=== PATIENT | male | born 1955 | race Two or more races ===

== ENCOUNTER 2016-04-21 14:58 | Emergency (ER) | payer MEDICARE ==
[~2016-04-21] VITALS: Ht 157.5 cm; Wt 82.1 kg
[~2016-04-21 14:58] MED LIST: AMOX1TAB61 PO; ASPI325T4 PO; ASPI81TA9 PO; ATOR20TA PO; CARV6.25 PO; CLOP75TA PO; CLOP75TA27 PO; ESCI5TAB8 PO; FURO-68 PO; FURO40TA4 PO; HYDR-2678 PO; INSU100V13 SQ; LISI-334 PO; LISI-338 PO; LISI40TA PO; LOVA20TA2 PO; METF500T4 PO; METO25TA4 PO; NITR0.4T SL; POTA10TA31 PO; SERT50TA8 PO; SIMV40TA3 PO; SPIR25TA PO; ZOLP5TAB PO
--- NOTE | 2016-04-21 16:03 | EKG ---
[facility] [address] [place] [address] Test Date: 2016-04-21 Test Time: 15:15:43 Pat Name: FUNMILAYO LOVELACE Department: Room: Gender: M [employer] Operator: : 1955 Requested By: MONA ARCE Order Number: [id number] Reading MD: Measurements Intervals [place] Rate: 82 P: -60 [place]: 142 QRS: -34 QRSD: 116 T: 114 QT: 388 QTc: 456 Interpretive Statements SINUS RHYTHM COMPLEX(ES) WITH ABERRANT INTRAVENTRICULAR CONDUCTION ABNORMAL LEFT AXIS DEVIATION LEFT ANTERIOR FASCICULAR BLOCK LVH WITH REPOLARIZATION ABNORMALITY RI6.01 Unconfirmed report No previous ECG available for comparison
--- NOTE | 2016-04-21 17:29 | PHYS DOC ---
Past Medical History Past Medical History: CAD, CHF, CVA, Diabetes-Type II, High Cholesterol, Hypertension, [place], Seizure Additional Past Medical Histor: TBI Past Surgical History: Coronary Bypass Surgery Alcohol Use: None Drug Use: None Adult General Chief Complaint Chief Complaint: HYPERTENSION HPI HPI 60 year-old male who states he's had difficulty controlling his blood pressure but denies any symptoms. He denies any chest pain or shortness of breath. He denies any dizziness or lightheadedness. He denies any headache. He is fully alert and oriented and answers all my questions. He states he has been compliant with his medications. He does take lisinopril, hydrochlorothiazide, and diuretics for blood pressure. Review of Systems Review of Systems Constitutional: Denies fever or chills [] Eyes: Denies change in visual acuity, redness, or eye pain [] HENT: Denies nasal congestion or sore throat [] Respiratory: Denies cough or shortness of breath [] Cardiovascular: No additional information not addressed in HPI [] GI: Denies abdominal pain, nausea, vomiting, bloody stools or diarrhea [] : Denies dysuria or hematuria [] Musculoskeletal: Denies back pain or joint pain [] Integument: Denies rash or skin lesions [] Neurologic: Denies headache, focal weakness or sensory changes [] Endocrine: Denies polyuria or polydipsia [] Allergies Allergies Allergies Coded Allergies Type Severity Reaction Last Updated Verified No Known Drug Allergies 04/06/13 No Physical Exam Physical Exam Constitutional: Well developed, well nourished, no acute distress, non-toxic appearance. [] HENT: Normocephalic, atraumatic, bilateral external ears normal, oropharynx moist, no oral exudates, nose normal. [] Eyes: PERRLA, EOMI, conjunctiva normal, no discharge. [] Neck: Normal range of motion, no tenderness, supple, no stridor. [] Cardiovascular:Heart rate regular rhythm, no murmur [] Lungs & Thorax: Bilateral breath sounds clear to auscultation [] Abdomen: Bowel sounds normal, soft, no tenderness, no masses, no pulsatile masses. [] Skin: Warm, dry, no erythema, no rash. [] Back: No tenderness, no CVA tenderness. [] Extremities: No tenderness, no cyanosis, no clubbing, ROM intact, no edema. [] Neurologic: Alert and oriented X 3, normal motor function, normal sensory function, no focal deficits noted. [] Psychologic: Affect normal, judgement normal, mood normal. [] Current Patient Data Vital Signs Vital Signs Date Time Temp Pulse Resp B/P Pulse Ox O2 Delivery O2 Flow Rate FiO2 04/21/16 17:40 83 22 204/101 95 Room Air 04/21/16 15:15 98.3 98.3 EKG EKG [] Radiology/Procedures Radiology/Procedures [] Course & Med Decision Making Course & Med Decision Making Pertinent Labs and Imaging studies reviewed. (See chart for details) Patient was observed in the department for several hours but ultimately was discharged home without a significant need for a workup. He is not having any symptoms at this time and his blood pressure is elevated and I counseled him that he will have to follow closely with his primary care doctor and have it rechecked and have his blood pressures trended before making any significant medication changes. In light of fact that he is having no symptoms, I do not see an indication to perform any workup at this time. He is very agreeable with this plan and was discharged without incident. Dragon Disclaimer Dragon Disclaimer This electronic medical record was generated, in whole or in part, using a voice recognition dictation system. Departure Departure Impression: Primary Impression: Uncontrolled hypertension Disposition: 01 HOME, SELF-CARE Admitting Physician: Other Condition: STABLE Referrals: VENKAT GRIJALVA MD (PCP) Patient Instructions: Hypertension, [id number] Additional Instructions: Please follow up with your primary doctor in the next 2 days for your recent elevated blood pressure. Return to the ER if you develop any worsening of your symptoms. MONA ARCE DO Apr 21, 2016 17:29
[2016-04-21 17:40] VITALS: BP 204/101
== END 2016-04-21 17:40 | disposition home or self-care (01) ==
LOC: ER 14:58
DX: I11.0 Hypertensive heart disease with heart failure (principal); I50.9 Heart failure, unspecified; I25.10 Atherosclerotic heart disease of native coronary artery without angina pectoris; E11.9 Type 2 diabetes mellitus without complications; E78.00 Pure hypercholesterolemia, unspecified; I25.2 Old myocardial infarction; Z95.1 Presence of aortocoronary bypass graft; Z87.820 Personal history of traumatic brain injury; Z86.73 Personal history of transient ischemic attack (TIA), and cerebral infarction without residual deficits
CPT/HCPCS: 93005; 99283-25

== ENCOUNTER 2018-05-15 12:29 | Emergency (ER) | payer MEDICARE ==
[~2018-05-15] VITALS: Ht 160 cm; Wt 99.8 kg
[~2018-05-15 12:29] MED LIST changes: +ASPI-612 PO; -ASPI325T4 PO; +ASPI325T8 PO; -ASPI81TA9 PO; +CARV12.511 PO; +CHOL100013 PO; -CLOP75TA27 PO; +CLOP75TA57 PO; +DONE10TA61 PO; +DONE5TAB56 PO; -ESCI5TAB8 PO; +FERR325T14 PO; +LEXAPRO5 MG PO; +LISI-130 PO; -LISI40TA PO; +METF500T16 PO; -METF500T4 PO; +PANT40TA5 PO
--- NOTE | 2018-05-15 12:51 | PHYS DOC ---
Past Medical History Past Medical History: CAD, CHF, CVA, Diabetes-Type II, High Cholesterol, Hypertension, [place], Seizure Additional Past Medical Histor: TBI (YONATHAN LANGLEY APRN) Past Surgical History: Coronary Bypass Surgery (YONATHAN LANGLEY APRN) Alcohol Use: None Drug Use: None (YONATHAN LANGLEY APRN) Adult General Chief Complaint Chief Complaint: DIZZY/LIGHT HEADED HPI HPI Patient is a 62 year old male with history of diabetes type 2, hypertension, COPD, CHF, CAD, [place], open heart surgery unknown date, who presents to the ED today complaining of blurred vision bilaterally and dizziness that began at 5 PM after having his regular cup of coffee. Denies any dizziness or blurred vision right now. Denies any chest pain or shortness of breath. Denies any fever coughing or congestion. PCP Dr. Michael Rogers (YONATHAN LANGLEY APRN) Review of Systems Review of Systems Constitutional: Denies fever or chills [] Eyes: Denies change in visual acuity, redness, or eye pain [] HENT: Denies nasal congestion or sore throat [] Respiratory: Denies cough or shortness of breath [] Cardiovascular: No additional information not addressed in HPI [] GI: Denies abdominal pain, nausea, vomiting, bloody stools or diarrhea [] : Denies dysuria or hematuria [] Musculoskeletal: Denies back pain or joint pain [] Integument: Denies rash or skin lesions [] Neurologic: Reports dizziness and blurred vision. Denies headache, focal weakness or sensory changes [] Endocrine: History of diabetes All other systems were reviewed and found to be within normal limits, except as documented in this note. (YONATHAN LANGLEY APRN) Allergies Allergies Allergies Coded Allergies Type Severity Reaction Last Updated Verified No Known Drug Allergies 09/07/16 No (VAISHNAVI NINA MD) Physical Exam Physical Exam Constitutional: Well developed, well nourished, no acute distress, non-toxic appearance. [] HENT: Normocephalic, atraumatic, bilateral external ears normal, oropharynx moist, no oral exudates, nose normal. [] Eyes: PERRLA, EOMI, conjunctiva normal, no discharge. [] Neck: Normal range of motion, no tenderness, supple, no stridor. [] Cardiovascular: Midline incision on the chest consistent with open heart surgery. Heart rate regular rhythm Lungs & Thorax: Bilateral breath sounds clear to auscultation [] Abdomen: Bowel sounds normal, soft, no tenderness, no masses, no pulsatile masses. [] Skin: Warm, dry, no erythema, no rash. [] Back: No tenderness, no CVA tenderness. [] Extremities: No tenderness, no cyanosis, no clubbing, ROM intact, no edema. [] Neurologic: Alert and oriented X 3, normal motor function, normal sensory function, no focal deficits noted. Cranial nerves II-XII intact Psychologic: Affect normal, judgement normal, mood normal. [] (YONATHAN LANGLEY APRN) Current Patient Data Vital Signs Vital Signs Date Time Temp Pulse Resp B/P (MAP) Pulse Ox O2 Delivery O2 Flow Rate FiO2 05/15/18 14:00 80 19 97 05/15/18 13:08 98.1 182/101 (128) Room Air 98.1 (VAISHNAVI NINA MD) Lab Values Laboratory Tests Test 05/15/18 12:35 05/15/18 12:42 05/15/18 13:05 Urine Opiates Screen Neg (NEG) Urine Methadone Screen Neg (NEG) Urine Barbiturates Neg (NEG) Urine Phencyclidine Screen Neg (NEG) Urine Amphetamine/Methamphetamine Neg (NEG) Urine Benzodiazepines Screen Neg (NEG) Urine Cocaine Screen Neg (NEG) Urine Cannabinoids Screen Neg (NEG) Urine Ethyl Alcohol Neg (NEG) Glucose (Fingerstick) 154 mg/dL (70-99) H White Blood Count 7.7 x10^3/uL (4.0-11.0) Red Blood Count 4.76 x10^6/uL (4.30-5.70) Hemoglobin 12.9 g/dL (13.0-17.5) L Hematocrit 39.0 % (39.0-53.0) Mean Corpuscular Volume 82 fL (79-100) Mean Corpuscular Hemoglobin 27 pg (25-35) Mean Corpuscular Hemoglobin Concent 33 g/dL (31-37) Red Cell Distribution Width 19.8 % (11.5-14.5) H Platelet Count 253 x10^3/uL (140-400) Neutrophils (%) (Auto) 75 % (31-73) H Lymphocytes (%) (Auto) 17 % (24-48) L Monocytes (%) (Auto) 5 % (0-9) Eosinophils (%) (Auto) 2 % (0-3) Basophils (%) (Auto) 0 % (0-3) Neutrophils # (Auto) 5.8 x10^3uL (1.8-7.7) Lymphocytes # (Auto) 1.3 x10^3/uL (1.0-4.8) Monocytes # (Auto) 0.4 x10^3/uL (0.0-1.1) Eosinophils # (Auto) 0.2 x10^3/uL (0.0-0.7) Basophils # (Auto) 0.0 x10^3/uL (0.0-0.2) Prothrombin Time 12.9 SEC (11.7-14.0) Prothrombin Time INR 1.0 (0.8-1.1) PTT 26 SEC (24-38) Sodium Level 140 mmol/L (136-145) Potassium Level 4.1 mmol/L (3.5-5.1) Chloride Level 100 mmol/L (98-107) Carbon Dioxide Level 30 mmol/L (21-32) Anion Gap 10 (6-14) Blood Urea Nitrogen 14 mg/dL (8-26) Creatinine 1.0 mg/dL (0.7-1.3) Estimated GFR (Cockcroft-Gault) 75.7 BUN/Creatinine Ratio 14 (6-20) Glucose Level 160 mg/dL (70-99) H Calcium Level 9.1 mg/dL (8.5-10.1) Magnesium Level 1.7 mg/dL (1.8-2.4) L Total Bilirubin 0.5 mg/dL (0.2-1.0) Aspartate Amino Transferase (AST) 17 U/L (15-37) Alanine Aminotransferase (ALT) 20 U/L (16-63) Alkaline Phosphatase 66 U/L (46-116) Creatine Kinase 93 U/L (39-308) Creatine Kinase MB (Mass) 1.1 ng/mL (0.0-3.6) Creatine Kinase MB Relative Index 1.2 % (0-4) Troponin I Quantitative 0.018 ng/mL (0.000-0.055) NK-Dlu-S-Type Natriuretic Peptide 1017 pg/mL (0-124) H Total Protein 8.0 g/dL (6.4-8.2) Albumin 3.6 g/dL (3.4-5.0) Albumin/Globulin Ratio 0.8 (1.0-1.7) L Lipase 104 U/L (73-393) Thyroid Stimulating Hormone (TSH) 0.117 uIU/mL (0.358-3.74) L Laboratory Tests 05/15/18 13:05 Laboratory Tests 05/15/18 13:05 (VAISHNAVI NINA MD) EKG EKG 12:[address] Nina sinus rhythm HR 76 no STEMI[] (SHWETAEMILYONATHAN Oseguera APRN) Radiology/Procedures Radiology/Procedures []PROCEDURE: PORTABLE CHEST 1V Portable chest, 05/15/2018: HISTORY: Dizziness Comparison is made to a study from 03/05/2018. There has been a previous median sternotomy. The heart is mildly enlarged. The pulmonary vascularity is normal. A streaky opacity projected over the right lower chest most likely represents an artifact. Pleural thickening inferiorly on both sides is due to subpleural fat accumulations. No acute infiltrate is seen. There is no evidence of pleural fluid. IMPRESSION: 1. Mild cardiomegaly. 2. No acute cardiopulmonary abnormality is detected. Electronically signed by: Beatrice Velazquez MD (05/15/2018 1:17 PM) [facility] DICTATED and SIGNED BY: BEATRICE VELAZQUEZ MD DATE: 05/15/18 1317 PROCEDURE: CT HEAD WO CONTRAST CT HEAD WO CONTRAST History: DIZZINESS, HX OF TRAUMATIC BRAIN INJURY/SURGERY Comparison: 09/05/2016 Technique: Noncontrast CT imaging was performed of the head. Exposure: One or more of the following individualized dose reduction techniques were utilized for this examination: 1. Automated exposure control 2. Adjustment of the mA and/or kV according to patient size 3. Use of iterative reconstruction technique. Findings: There again has been right frontal parietal temporal craniotomy. There is again large area of encephalomalacia of the right frontal and temporal lobes as well as basal ganglia, lesser degree of involvement of the right parietal lobe. There is cortical involvement. There is no new intra-axial mass effect or midline shift or acute intracranial hemorrhage. Ventricular size is similar. There is again small focus of encephalomalacia with cortical involvement left occipital lobe. There is again old lacunar infarct centered in the left basal ganglia. There is atherosclerotic calcification of the intradural vertebral arteries and basilar artery as well as carotid siphons. There are again clips in the region of the right middle cerebral artery and paraclinoid region. There are probable foci of low density of the flora greater on the left as seen previously which may be due to sequela of old lacunar infarcts. There is complete opacification of the visualized right maxillary sinus with adjacent thickened purcell as seen previously. Impression: 1. Intracranial findings are unchanged compared with the August 2016 exam. There is again large area of encephalomalacia of the right cerebral hemisphere, also small focus of encephalomalacia with cortical involvement of the left occipital lobe. Electronically signed by: Neptali Cruz MD (05/15/2018 12:55 PM) [id number] DICTATED and SIGNED BY: NEPTALI CRUZ MD DATE: 05/15/18 2549 (YONATHAN LANGLEY APRN) Course & Med Decision Making Course & Med Decision Making Pertinent Labs and Imaging studies reviewed. (See chart for details) This is a 62-year-old male patient presenting to the ED today complaining of dizziness and blurred vision bilaterally that began today after having a cup of coffee at 5 AM. Stroke scale is 0. CT of the head is negative, chest x-ray is negative, labs would not acute findings. Vitals on arrival to the ED temperature 98.1 heart rate 76 O2 sats 98% on room air blood pressure 182/101 respiration 21. I went the patient results he states the reason he developed the dizziness and blurred vision loss because he forgot to take his medicines this morning. He states he took the medicines later on during the day. He was sitting on the edge of the bed. He states wants to go home, he states the dizziness is gone. His blood pressure is came down to the 170s over 90s. He has good follow-up, discharge him home to follow up with his own PCP, neurologist and red cap. (YONATHAN LANGLEY APRN) Course & Med Decision Making Staff Physician Addendum: I was working in the ER during the course of this patient's visit. I was available for consultation as needed, but I was not directly involved in the care of this patient. (VAISHNAVI NINA MD) Dragon Disclaimer Dragon Disclaimer This electronic medical record was generated, in whole or in part, using a voice recognition dictation system. (YONATHAN LANGLEY APRN) Departure Departure Impression: Primary Impression: Dizziness Additional Impressions: Accelerated hypertension Blurred vision Disposition: HOME, SELF-CARE Condition: STABLE Referrals: VENKAT GRIJALVA MD (PCP) follow up next week KRISTINE NOGUEIRA MD follow up in 1 week NITISH ZAMBRANO MD follow up in 1 week Patient Instructions: Dizziness, [id number] Additional Instructions: You were evaluated in the emergency room for dizziness or blurred vision. Your workup was negative for any acute findings, ensure you are taking your medications on time as prescribed by your doctor. Please continue to follow-up with Dr. Grijalva, your neurologist and red cap if you have one. If you don't a red cap and neurologist we provided you names on your discharge paperwork. Come back to the ED at any point symptoms worsen. NIHSS Stroke Scale NIH Stroke Scale: NIH Stroke Scale Response (Comments) Value Level of Consciousness: 0 Alert/Responsive 0 LOC Questions: 0 Answers both correctly 0 LOC Commands: 0 Performs both tasks 0 Best Gaze: 0 Normal 0 Visual: 0 No visual loss 0 Facial Palsy: 0 Normal, symmetrical 0 Motor - Left Arm 0 No drift 0 Motor - Right Arm 0 No drift 0 Motor - Left Leg 0 No drift 0 Motor: Right Leg 0 No drift 0 Limb Ataxia: 0 Absent 0 Sensory: 0 No loss 0 Best Language: 0 Normal 0 Dysathria: 0 Normal 0 Extinction and Inattention: 0 Normal 0 Total 0 Problem Qualifiers YONATHAN LANGLEY APRN May 15, 2018 12:51 VAISHNAVI NINA MD May 17, 2018 10:40
--- NOTE | 2018-05-15 12:58 | RAD ---
CT HEAD WO CONTRAST History: DIZZINESS, HX OF TRAUMATIC BRAIN INJURY/SURGERY Comparison: 09/05/2016 Technique: Noncontrast CT imaging was performed of the head. Exposure: One or more of the following individualized dose reduction techniques were utilized for this examination: 1. Automated exposure control 2. Adjustment of the mA and/or kV according to patient size 3. Use of iterative reconstruction technique. Findings: There again has been right frontal parietal temporal craniotomy. There is again large area of encephalomalacia of the right frontal and temporal lobes as well as basal ganglia, lesser degree of involvement of the right parietal lobe. There is cortical involvement. There is no new intra-axial mass effect or midline shift or acute intracranial hemorrhage. Ventricular size is similar. There is again small focus of encephalomalacia with cortical involvement left occipital lobe. There is again old lacunar infarct centered in the left basal ganglia. There is atherosclerotic calcification of the intradural vertebral arteries and basilar artery as well as carotid siphons. There are again clips in the region of the right middle cerebral artery and paraclinoid region. There are probable foci of low density of the flora greater on the left as seen previously which may be due to sequela of old lacunar infarcts. There is complete opacification of the visualized right maxillary sinus with adjacent thickened purcell as seen previously. Impression: 1. Intracranial findings are unchanged compared with the August 2016 exam. There is again large area of encephalomalacia of the right cerebral hemisphere, also small focus of encephalomalacia with cortical involvement of the left occipital lobe. Electronically signed by: Rony Carl MD (05/15/2018 12:55 PM) [email or web address]
[2018-05-15 13:04] LABS: BARBITURATES NEG (NEG); BENZODIAZEPINES NEG (NEG); CANNABINOIDS NEG (NEG); COCAINE NEG (NEG); METHADONE NEG (NEG); OPIATES NEG (NEG); PHENCYCLIDINE NEG (NEG)
[2018-05-15 13:05] LABS: AMPHETAMINE/METHAMPHETAMINE NEG (NEG)
--- NOTE | 2018-05-15 13:07 | EKG ---
[facility] [address] [place] [address] Test Date: 2018-05-15 Test Time: 12:52:47 Pat Name: FUNMILAYO LOVELACE Department: Room: Gender: M [employer]: : 1955 Requested By: YONATHAN LANGLEY Order Number: [id number] Reading MD: Robles Joshi MD Measurements Intervals [place] Rate: 76 P: -90 [place]: 144 QRS: -48 QRSD: 150 T: -69 QT: 384 QTc: 436 Interpretive Statements SINUS RHYTHM RBBB RVH NON-SPECIFIC ST/T CHANGES Electronically Signed On 05-16-2018 9:46:06 CDT by Robles Joshi MD
[2018-05-15 13:14] LABS: BASO % 0 % (0-3); EOS # 0.2 x10^3/uL (0.0-0.7); EOS % 2 % (0-3); HEMOGLOBIN 12.9 g/dL (13.0-17.5); LYMPH # 1.3 x10^3/uL (1.0-4.8); LYMPH % 17 % (24-48); MEAN CORPUSCULAR HEMOGLOBIN 27 pg (25-35); MEAN CORPUSCULAR HGB CONC 33 g/dL (31-37); MEAN CORPUSCULAR VOLUME 82 fL (79-100); MONO # 0.4 x10^3/uL (0.0-1.1); MONO % 5 % (0-9); NEUT # 5.8 x10^3uL (1.8-7.7); NEUT % 75 % (31-73); PLATELET COUNT 253 x10^3/uL (140-400); RED BLOOD COUNT 4.76 x10^6/uL (4.30-5.70); RED CELL DISTRIBUTION WIDTH 19.8 % (11.5-14.5); WHITE BLOOD COUNT 7.7 x10^3/uL (4.0-11.0)
--- NOTE | 2018-05-15 13:20 | RAD ---
Portable chest, 05/15/2018: HISTORY: Dizziness Comparison is made to a study from 03/05/2018. There has been a previous median sternotomy. The heart is mildly enlarged. The pulmonary vascularity is normal. A streaky opacity projected over the right lower chest most likely represents an artifact. Pleural thickening inferiorly on both sides is due to subpleural fat accumulations. No acute infiltrate is seen. There is no evidence of pleural fluid. IMPRESSION: 1. Mild cardiomegaly. 2. No acute cardiopulmonary abnormality is detected. Electronically signed by: Sunny Velazquez MD (05/15/2018 1:17 PM) [facility] [place]
[2018-05-15 13:22] LABS: CALCIUM 9.1 mg/dL (8.5-10.1); GFR 75.7; POTASSIUM 4.1 mmol/L (3.5-5.1)
[2018-05-15 13:24] LABS: PROTHROMBIN TIME PATIENT 12.9 SEC (11.7-14.0)
[2018-05-15 13:28] LABS: ALBUMIN 3.6 g/dL (3.4-5.0); ALBUMIN/GLOBULIN RATIO 0.8 (1.0-1.7); MAGNESIUM 1.7 mg/dL (1.8-2.4); TOTAL BILIRUBIN 0.5 mg/dL (0.2-1.0)
[2018-05-15 14:00] VITALS: BP 148/87
== END 2018-05-15 14:38 | disposition home or self-care (01) ==
LOC: ER 12:29
DX: R42 Dizziness and giddiness (principal); H53.8 Other visual disturbances; I11.0 Hypertensive heart disease with heart failure; I50.9 Heart failure, unspecified; E78.00 Pure hypercholesterolemia, unspecified; I25.2 Old myocardial infarction; I25.10 Atherosclerotic heart disease of native coronary artery without angina pectoris; Z86.73 Personal history of transient ischemic attack (TIA), and cerebral infarction without residual deficits; Z95.1 Presence of aortocoronary bypass graft
CPT/HCPCS: 36415; 70450; 71045; 80053; 80307; 82553; 82962; 83690; 83735; 83880; 84443; 84484; 85025; 85610; 85730; 93005; 99285-25

== ENCOUNTER 2019-04-15 04:03 | Emergency (ER) | payer MEDICARE ==
[~2019-04-15] VITALS: Ht 188 cm; Wt 109.1 kg
[~2019-04-15 04:03] MED LIST changes: -NITR0.4T SL; +NITR0.4T24 SL; -PANT40TA5 PO; +PANT40TA77 PO; +SIMV40TA18 PO; -SIMV40TA3 PO
[2019-04-15 04:56] LABS: BASO # 0.1 x10^3/uL (0.0-0.2); BASO % 1 % (0-3); EOS # 0.2 x10^3/uL (0.0-0.7); EOS % 3 % (0-3); HEMATOCRIT 39.2 % (39.0-53.0); HEMOGLOBIN 13.4 g/dL (13.0-17.5); LYMPH # 1.6 x10^3/uL (1.0-4.8); LYMPH % 18 % (24-48); MEAN CORPUSCULAR HEMOGLOBIN 29 pg (25-35); MEAN CORPUSCULAR HGB CONC 34 g/dL (31-37); MEAN CORPUSCULAR VOLUME 84 fL (79-100); MONO # 0.6 x10^3/uL (0.0-1.1); MONO % 7 % (0-9); NEUT # 6.4 x10^3/uL (1.8-7.7); NEUT % 72 % (31-73); PLATELET COUNT 241 x10^3/uL (140-400); RED BLOOD COUNT 4.67 x10^6/uL (4.30-5.70); RED CELL DISTRIBUTION WIDTH 14.5 % (11.5-14.5); WHITE BLOOD COUNT 8.9 x10^3/uL (4.0-11.0)
[2019-04-15 05:14] LABS: CALCIUM 8.6 mg/dL (8.5-10.1); CREATININE 1.2 mg/dL (0.7-1.3); GFR 61.1; POTASSIUM 3.5 mmol/L (3.5-5.1)
--- NOTE | 2019-04-15 05:19 | EKG ---
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
--- NOTE | 2019-04-15 05:19 | PHYS DOC ---
Past Medical History Past Medical History: CAD, CHF, CVA, Diabetes-Type II, High Cholesterol, Hypertension, [place], Seizure Additional Past Medical Histor: TBI Past Surgical History: Coronary Bypass Surgery Smoking Status: Never Smoker Alcohol Use: None Drug Use: None Adult General Chief Complaint Chief Complaint: DIZZY/LIGHT HEADED HPI HPI Patient is a 63 year old male who presents with complaint of lightheadedness and seeing floaters today. Patient denies any flickering lights. Patient denies any headache or significant visual changes. He denies any nausea or vomiting. He also denies any chest pain or shortness of breath.[] Review of Systems Review of Systems Constitutional: Denies fever or chills [] Eyes: Denies change in visual acuity, redness, or eye pain. Complains of floaters. [] Respiratory: Denies cough or shortness of breath [] Cardiovascular: No additional information not addressed in HPI [] Integument: Denies rash or skin lesions [] Neurologic: Denies headache, focal weakness or sensory changes [] All other systems were reviewed and found to be within normal limits, except as documented in this note. Allergies Allergies Allergies Coded Allergies Type Severity Reaction Last Updated Verified No Known Drug Allergies 09/07/16 No Physical Exam Physical Exam Constitutional: Well developed, well nourished, no acute distress, non-toxic appearance. [] HENT: Normocephalic, atraumatic, bilateral external ears normal, oropharynx moist, no oral exudates, nose normal. [] Eyes: PERRLA, EOMI, conjunctiva normal, no discharge. [] Neck: Normal range of motion, no tenderness, supple, no stridor. [] Cardiovascular: Regular rate and rhythm[] Lungs & Thorax: Bilateral breath sounds clear to auscultation [] Abdomen: Bowel sounds normal, soft, no tenderness. [] Skin: Warm, dry, no erythema, no rash. [] Extremities: No tenderness, no cyanosis, no clubbing, ROM intact. [] Neurologic: Alert and oriented X 3, no focal deficits noted. [] Current Patient Data Vital Signs Vital Signs Date Time Temp Pulse Resp B/P (MAP) Pulse Ox O2 Delivery O2 Flow Rate FiO2 04/15/19 04:30 98.6 101 18 172/100 (124) 96 Room Air 98.6 Lab Values Laboratory Tests Test 04/15/19 04:33 04/15/19 04:45 Glucose (Fingerstick) 190 mg/dL (70-99) H White Blood Count 8.9 x10^3/uL (4.0-11.0) Red Blood Count 4.67 x10^6/uL (4.30-5.70) Hemoglobin 13.4 g/dL (13.0-17.5) Hematocrit 39.2 % (39.0-53.0) Mean Corpuscular Volume 84 fL (79-100) Mean Corpuscular Hemoglobin 29 pg (25-35) Mean Corpuscular Hemoglobin Concent 34 g/dL (31-37) Red Cell Distribution Width 14.5 % (11.5-14.5) Platelet Count 241 x10^3/uL (140-400) Neutrophils (%) (Auto) 72 % (31-73) Lymphocytes (%) (Auto) 18 % (24-48) L Monocytes (%) (Auto) 7 % (0-9) Eosinophils (%) (Auto) 3 % (0-3) Basophils (%) (Auto) 1 % (0-3) Neutrophils # (Auto) 6.4 x10^3/uL (1.8-7.7) Lymphocytes # (Auto) 1.6 x10^3/uL (1.0-4.8) Monocytes # (Auto) 0.6 x10^3/uL (0.0-1.1) Eosinophils # (Auto) 0.2 x10^3/uL (0.0-0.7) Basophils # (Auto) 0.1 x10^3/uL (0.0-0.2) Sodium Level 141 mmol/L (136-145) Potassium Level 3.5 mmol/L (3.5-5.1) Chloride Level 103 mmol/L (98-107) Carbon Dioxide Level 27 mmol/L (21-32) Anion Gap 11 (6-14) Blood Urea Nitrogen 13 mg/dL (8-26) Creatinine 1.2 mg/dL (0.7-1.3) Estimated GFR (Cockcroft-Gault) 61.1 BUN/Creatinine Ratio 11 (6-20) Glucose Level 191 mg/dL (70-99) H Calcium Level 8.6 mg/dL (8.5-10.1) Magnesium Level 1.5 mg/dL (1.8-2.4) L Total Bilirubin 0.8 mg/dL (0.2-1.0) Aspartate Amino Transferase (AST) 14 U/L (15-37) L Alanine Aminotransferase (ALT) 13 U/L (16-63) L Alkaline Phosphatase 67 U/L (46-116) Total Protein 7.0 g/dL (6.4-8.2) Albumin 3.1 g/dL (3.4-5.0) L Albumin/Globulin Ratio 0.8 (1.0-1.7) L Laboratory Tests 04/15/19 04:45 Laboratory Tests 04/15/19 04:45 EKG EKG [] Interpretation Time: EKG demonstrates sinus tachycardia with rate of 101. Radiology/Procedures Radiology/Procedures [] Course & Med Decision Making Course & Med Decision Making Pertinent Labs and Imaging studies reviewed. (See chart for details) [] Dragon Disclaimer Dragon Disclaimer This electronic medical record was generated, in whole or in part, using a voice recognition dictation system. Departure Departure Impression: Primary Impression: Vitreous floaters of both eyes Disposition: 01 HOME, SELF-CARE Condition: STABLE Referrals: VENKAT GRIJALVA MD (PCP) JC NOBLE MD Call to schedule appointment with ophthalmology for the next 1-2 days. Patient Instructions: Eye - Floaters LANE PHILLIPS Jr. DO Apr 15, 2019 05:19
[2019-04-15 05:20] LABS: ALBUMIN 3.1 g/dL (3.4-5.0); ALBUMIN/GLOBULIN RATIO 0.8 (1.0-1.7); MAGNESIUM 1.5 mg/dL (1.8-2.4); TOTAL BILIRUBIN 0.8 mg/dL (0.2-1.0)
[2019-04-15] MEDS: MAGNESIUM OXIDE 400 MG TABLET PO ONE (06:22)
[2019-04-15 06:23] VITALS: BP 138/79
== END 2019-04-15 06:35 | disposition home or self-care (01) ==
LOC: ER 04:03
DX: H43.393 Other vitreous opacities, bilateral (principal); R42 Dizziness and giddiness; E78.00 Pure hypercholesterolemia, unspecified; E11.9 Type 2 diabetes mellitus without complications; I11.0 Hypertensive heart disease with heart failure; I50.9 Heart failure, unspecified; I25.10 Atherosclerotic heart disease of native coronary artery without angina pectoris; I25.2 Old myocardial infarction; Z86.73 Personal history of transient ischemic attack (TIA), and cerebral infarction without residual deficits; Z95.1 Presence of aortocoronary bypass graft
CPT/HCPCS: 36415; 80053; 82962; 83735; 85025; 93005; 99284-25

== ENCOUNTER 2019-07-12 15:58 | Emergency (ER) | payer MEDICARE ==
[~2019-07-12] VITALS: Ht 160 cm; Wt 100.0 kg
[2019-07-12] MEDS ORDERED: HYDROmorphone 2 MG/ML VIAL IV ONE (16:45)
[2019-07-12] MEDS ORDERED: ONDANSETRON PF 4 MG/2 ML VIAL. IVP ONE (16:45)
[2019-07-12] MEDS ORDERED: IV NORMAL SALINE 1000ML BAG 1,000 ML IV ONE (16:45)
[2019-07-12 16:58] LABS: BASO % 1 % (0-3); EOS # 0.2 x10^3/uL (0.0-0.7); EOS % 2 % (0-3); HEMATOCRIT 42.4 % (39.0-53.0); HEMOGLOBIN 14.2 g/dL (13.0-17.5); LYMPH # 1.2 x10^3/uL (1.0-4.8); LYMPH % 11 % (24-48); MEAN CORPUSCULAR HEMOGLOBIN 28 pg (25-35); MEAN CORPUSCULAR HGB CONC 33 g/dL (31-37); MEAN CORPUSCULAR VOLUME 85 fL (79-100); MONO # 0.8 x10^3/uL (0.0-1.1); MONO % 8 % (0-9); NEUT % 78 % (31-73); PLATELET COUNT 277 x10^3/uL (140-400); RED BLOOD COUNT 5.01 x10^6/uL (4.30-5.70); RED CELL DISTRIBUTION WIDTH 15.1 % (11.5-14.5); WHITE BLOOD COUNT 10.2 x10^3/uL (4.0-11.0)
[2019-07-12 17:06] LABS: CALCIUM 8.4 mg/dL (8.5-10.1); CREATININE 1.4 mg/dL (0.7-1.3); GFR 51.2
[2019-07-12 17:12] LABS: ALBUMIN 3.3 g/dL (3.4-5.0); ALBUMIN/GLOBULIN RATIO 0.7 (1.0-1.7); TOTAL BILIRUBIN 0.4 mg/dL (0.2-1.0); TOTAL PROTEIN 7.8 g/dL (6.4-8.2)
--- NOTE | 2019-07-12 17:43 | RAD ---
DUPLEX SONOGRAPHY OF THE TESTICLES AND SCROTUM INDICATIONS: Abscess. FINDINGS: Duplex sonography of the scrotum and both testicles was performed including grayscale evaluation and color flow and waveform spectral analysis. Symmetric color Doppler flow is seen within the testicles and therefore no testicular torsion is seen. The longitudinal AP and transverse dimensions of the right testicle are 4.3 cm and 2.6 and measures and 2.4 cm respectively. The longitudinal AP and transverse dimensions of the left testicle are 4.3 cm and 2.2 cm and 2.4 cm respectively. Both testicles are homogeneous without mass. On the left side, small tunica albuginea cysts are seen around the testicle. Small hydrocele is seen on both sides. Epididymis on both sides are unremarkable without hyperemia. Within the soft tissues of the scrotum on the right side, complex abscess is seen with hyperemia. This measures 2.9 cm x 2.3 cm x 2.2 cm in size. There is associated skin thickening of the scrotum. IMPRESSION: Scrotal abscess on the right side measuring 2.9 cm in size. No testicular torsion or mass is seen. Electronically signed by: Bebeto Vargas MD (07/12/2019 5:40 PM) [id number]
--- NOTE | 2019-07-12 18:24 | PHYS DOC ---
Past Medical History Past Medical History: CAD, CHF, CVA, Diabetes-Type II, High Cholesterol, Hypertension, [place], Seizure Additional Past Medical Histor: TBI Past Surgical History: Coronary Bypass Surgery Smoking Status: Never Smoker Alcohol Use: None Drug Use: None General Adult EDM: Chief Complaint: PENIS PROBLEM HPI: HPI: Patient is a 63 year old male presenting to the ED with a chief complaint of right testicular pain. Patient states that there is drainage from the right testicle. Patient states that the symptoms are not present for the last 2 days. Patient does state that he has a history of diabetes, high blood pressure, coronary artery disease, CVA, CHF. Patient does have a history of CABG. patient denies fever, chills, chest pain, shortness of breath. Review of Systems: Review of Systems: Constitutional: Denies fever or chills. [] Eyes: Denies change in visual acuity. [] HENT: Denies nasal congestion or sore throat. [] Respiratory: Denies cough or shortness of breath. [] Cardiovascular: Denies chest pain or edema. [] GI: Denies abdominal pain, nausea, vomiting, bloody stools or diarrhea. [] : Denies dysuria. [] Musculoskeletal: Denies back pain or joint pain. [] Integument: Denies rash. [] Neurologic: Denies headache, focal weakness or sensory changes. [] Endocrine: Denies polyuria or polydipsia. [] Lymphatic: Denies swollen glands. [] Psychiatric: Denies depression or anxiety. [] Heart Score: Risk Factors: Risk Factors: DM, Current or recent (<one month) smoker, HTN, HLP, family history of CAD, obesity. Risk Scores: Score 0 - 3: 2.5% MACE over next 6 weeks - Discharge Home Score 4 - 6: 20.3% MACE over next 6 weeks - Admit for Clinical Observation Score 7 - 10: 72.7% MACE over next 6 weeks - Early Invasive Strategies Current Medications: Current Medications Medications (Trade) Dose Ordered Sig/Grace Start Time Stop Time Status Last Admin Dose Admin Hydromorphone HCl (Dilaudid) 1 mg 1X ONCE 07/12/19 16:45 07/12/19 16:46 DC 07/12/19 16:59 1 MG Ondansetron HCl (Zofran) 4 mg 1X ONCE 07/12/19 16:45 07/12/19 16:46 DC 07/12/19 16:57 4 MG Sodium Chloride 1,000 ml @ 1,000 mls/hr 1X ONCE 07/12/19 16:45 07/12/19 17:44 DC 07/12/19 16:56 1,000 MLS/HR Vancomycin HCl 1.25 gm/Sodium Chloride 250 ml @ 166.667 mls/hr 1X ONCE 07/12/19 18:30 07/12/19 19:59 UNV Allergies: Allergies: Allergies Coded Allergies Type Severity Reaction Last Updated Verified No Known Drug Allergies 09/07/16 No Physical Exam: PE: Constitutional: Well developed, well nourished, no acute distress, non-toxic appearance. HENT: Normocephalic, atraumatic Eyes: EOMI Neck: Normal range of motion, Supple Cardiovascular:Heart rate regular rhythm Lungs & Thorax: Bilateral breath sounds clear to auscultation [] Abdomen: Bowel sounds normal, soft, no tenderness : There is a indurated area in the right testicle with mild discharge Neurologic: Alert and oriented X 3 Current Patient Data: Labs: Laboratory Tests Test 07/12/19 16:49 White Blood Count 10.2 x10^3/uL (4.0-11.0) Red Blood Count 5.01 x10^6/uL (4.30-5.70) Hemoglobin 14.2 g/dL (13.0-17.5) Hematocrit 42.4 % (39.0-53.0) Mean Corpuscular Volume 85 fL (79-100) Mean Corpuscular Hemoglobin 28 pg (25-35) Mean Corpuscular Hemoglobin Concent 33 g/dL (31-37) Red Cell Distribution Width 15.1 % (11.5-14.5) H Platelet Count 277 x10^3/uL (140-400) Neutrophils (%) (Auto) 78 % (31-73) H Lymphocytes (%) (Auto) 11 % (24-48) L Monocytes (%) (Auto) 8 % (0-9) Eosinophils (%) (Auto) 2 % (0-3) Basophils (%) (Auto) 1 % (0-3) Neutrophils # (Auto) 8.0 x10^3/uL (1.8-7.7) H Lymphocytes # (Auto) 1.2 x10^3/uL (1.0-4.8) Monocytes # (Auto) 0.8 x10^3/uL (0.0-1.1) Eosinophils # (Auto) 0.2 x10^3/uL (0.0-0.7) Basophils # (Auto) 0.0 x10^3/uL (0.0-0.2) Sodium Level 137 mmol/L (136-145) Potassium Level 4.0 mmol/L (3.5-5.1) Chloride Level 101 mmol/L (98-107) Carbon Dioxide Level 29 mmol/L (21-32) Anion Gap 7 (6-14) Blood Urea Nitrogen 18 mg/dL (8-26) Creatinine 1.4 mg/dL (0.7-1.3) H Estimated GFR (Cockcroft-Gault) 51.2 BUN/Creatinine Ratio 13 (6-20) Glucose Level 214 mg/dL (70-99) H Lactic Acid Level 1.6 mmol/L (0.4-2.0) Calcium Level 8.4 mg/dL (8.5-10.1) L Total Bilirubin 0.4 mg/dL (0.2-1.0) Aspartate Amino Transferase (AST) 11 U/L (15-37) L Alanine Aminotransferase (ALT) 10 U/L (16-63) L Alkaline Phosphatase 83 U/L (46-116) Total Protein 7.8 g/dL (6.4-8.2) Albumin 3.3 g/dL (3.4-5.0) L Albumin/Globulin Ratio 0.7 (1.0-1.7) L Laboratory Tests 07/12/19 16:49 Laboratory Tests 07/12/19 16:49 Vital Signs: Vital Signs Date Time Temp Pulse Resp B/P (MAP) Pulse Ox O2 Delivery O2 Flow Rate FiO2 07/12/19 16:59 16 97 Room Air 07/12/19 16:09 98.3 101 154/103 (120) 98.3 EKG: EKG: [] Radiology/Procedures: Radiology/Procedures: [] Impression: IMPRESSION: Scrotal abscess on the right side measuring 2.9 cm in size. No testicular torsion or mass is seen. Course & Med Decision Making: Course & Med Decision Making Pertinent Labs and Imaging studies reviewed. (See chart for details) Ordered labs, UA, IV fluids, IV Dilaudid, IV Zofran, ultrasound of the scrotum. Labs are within normal limits except elevated blood glucose. Ultrasound shows that patient has a scrotal abscess in the right that measures 2.9 cm x 2.3 cm x 2.2 cm. 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 IV vancomycin started in the ER. As [facility] does not have urology coverage patient will be transferred to another facility for further evaluation and treatment. I discussed case with [facility] and also discussed with Dr. Gordon who is the on-call urologist. Dr. Gordon accepts patient for transfer to the ER. I discussed results and plan of care with patient. Thea Disclaimer: Thea Disclaimer: This electronic medical record was generated, in whole or in part, using a voice recognition dictation system. Departure Departure Impression: Primary Impression: Scrotal abscess Disposition: 05 TRANSFER OTHER Condition: GUARDED Referrals: VENKAT GRIJALVA MD (PCP) OZZIE MEANS DO July 12, 2019 18:24
[2019-07-12] MEDS ORDERED: VANCOMYCIN 1.25 GM in IV NORMAL SALINE 250ML 250 ML IV ONE (18:30)
[2019-07-12] MEDS ORDERED: VANCOMYCIN 2 GM in IV NORMAL SALINE 500ML BAG 500 ML IV ONE (19:00)
[2019-07-12 20:35] VITALS: BP 139/96
== END 2019-07-12 20:43 | disposition short-term general hospital (02) ==
LOC: ER 15:58
DX: N49.2 Inflammatory disorders of scrotum (principal); E11.9 Type 2 diabetes mellitus without complications; E78.00 Pure hypercholesterolemia, unspecified; I11.0 Hypertensive heart disease with heart failure; I50.9 Heart failure, unspecified; I25.10 Atherosclerotic heart disease of native coronary artery without angina pectoris; I25.2 Old myocardial infarction; Z87.820 Personal history of traumatic brain injury; Z95.1 Presence of aortocoronary bypass graft
CPT/HCPCS: 36415; 76870; 80053; 83605; 85025; 96365; 96366; 96375; 99285; J1170; J2405; J3370; J7030; J7040

== ENCOUNTER 2020-12-05 11:03 | Inpatient (IN) | payer MEDICARE, OTHER ==
[~2020-12-05] VITALS: Ht 157.5 cm; Wt 83.1 kg
[~2020-12-05 11:03] MED LIST changes: -ASPI-612 PO; +ASPI-886 PO; -LISI-334 PO; -LISI-338 PO; +LISI20TA18 PO; +LISI5TAB15 PO; +SERT-267 PO; -SERT50TA8 PO
--- NOTE | 2020-12-05 11:22 | PHYS DOC ---
Past Medical History Past Medical History: CAD, CHF, CVA, Diabetes-Type II, High Cholesterol, Hypertension, [place], Seizure Additional Past Medical Histor: TBI Past Surgical History: Coronary Bypass Surgery Smoking Status: Never Smoker Alcohol Use: None Drug Use: None General Adult EDM: Chief Complaint: SHORTNESS OF BREATH HPI: HPI: Patient is a 65 year old male with history of DM, HTN, HLD, CAD, CVA who presents with cough, shortness of breath, fever. Has been having symptoms for several days. Has increasing shortness of breath. Cough is productive of yellow sputum. No blood in the sputum. Denies any chest pain. No abdominal pain, nausea, vomiting. Review of Systems: Review of Systems: Constitutional: Reports fever and chills Eyes: Denies change in visual acuity. [] HENT: Denies nasal congestion or sore throat. [] Respiratory: Reports cough and shortness of breath Cardiovascular: Denies chest pain or edema. [] GI: Denies abdominal pain, nausea, vomiting, bloody stools or diarrhea. [] : Denies dysuria. [] Musculoskeletal: Denies back pain or joint pain. [] Integument: Denies rash. [] Neurologic: Denies headache, focal weakness or sensory changes. [] Endocrine: Denies polyuria or polydipsia. [] Lymphatic: Denies swollen glands. [] Psychiatric: Denies depression or anxiety. [] Heart Score: C/O Chest Pain: No Risk Factors: Risk Factors: DM, Current or recent (<one month) smoker, HTN, HLP, family history of CAD, obesity. Risk Scores: Score 0 - 3: 2.5% MACE over next 6 weeks - Discharge Home Score 4 - 6: 20.3% MACE over next 6 weeks - Admit for Clinical Observation Score 7 - 10: 72.7% MACE over next 6 weeks - Early Invasive Strategies Allergies: Allergies: Allergies Coded Allergies Type Severity Reaction Last Updated Verified No Known Drug Allergies 09/07/16 No Physical Exam: PE: Constitutional: Ill-appearing, very warm to the touch. Very generally weak, required 23 persons for transfer from wheelchair to bed. HENT: Normocephalic, atraumatic Eyes: PERRLA, EOMI, conjunctiva normal, no discharge. [] Neck: Normal range of motion, no tenderness, supple, no stridor. [] Cardiovascular:Heart rate regular rhythm, no murmur [] Lungs & Thorax: Increased work of breathing, tachypnea, distant lung sounds bilaterally. Abdomen: Bowel sounds normal, soft, no tenderness, no masses, no pulsatile masses. [] Skin: Warm, dry, no erythema, no rash. [] Back: No tenderness, no CVA tenderness. [] Extremities: 2+ pitting edema to the knee. [] Neurologic: Alert and oriented X 3, normal motor function, normal sensory function, no focal deficits noted. [] Psychologic: Affect normal, judgement normal, mood normal. [] EKG: EKG: Heart rate 129. Appears to be sinus with a nonspecific intraventricular conduction delay. Left axis deviation. No concordant ST changes. [] Radiology/Procedures: Radiology/Procedures: [] Impression: [facility] [address] [place] [address] IMAGING REPORT Signed PATIENT: FUNMILAYO LOVELACE ACCOUNT: [id number] : 1955 LOCATION: ER AGE: 65 SEX: M EXAM STATUS: REG ER ORD. PHYSICIAN: CHATA DELGADO MD REASON: sepsis, cough, fever, sob, PT HAD DIFFICULTY HOLDING BREATH FOR XRAY PROCEDURE: CHEST AP ONLY AP chest. HISTORY: Sepsis, cough, fever, short of breath AP view of the chest was compared with an old study from 2019. Heart is enlarged. There are diffuse bilateral infiltrates most consistent with atypical or Covid 19 pneumonia. There is mild pleural thickening similar to an old study. Patient had a previous sternotomy. IMPRESSION: 1. Bilateral hazy infiltrates. Electronically signed by: Ludwin Arora MD (12/05/2020 12:20 PM) [facility] [place]ATED and SIGNED BY: LUDWIN ARORA MD DATE: 12/05/20 [id number] 0 Course & Med Decision Making: Course & Med Decision Making Pertinent Labs and Imaging studies reviewed. (See chart for details) Patient is 65-year-old man with history of HTN, HLD, DM, CVA, CAD, CHF who presents with fever, cough, shortness of breath. Febrile to 103 F on arrival, tachycardic to 130s. BP stable. SPO2 93% on room air, but does show signs of increased work of breathing. Sepsis bundle ordered with lactic acid, blood culture, will give Zosyn and azithromycin for presumed pulmonary source. Covid and flu tests pending. Given his CHF history, and evidence of pedal edema, will be cautious with fluids and start with 500 cc bolus. 1126 CXR shows bilateral hazy infiltrates. Lactate 2.0. Troponin 0.071, the setting of a creatinine of 1.4. Patient has not had any chest pain, so I doubt a primary ischemic etiology. More likely to be related to sepsis. Will trend troponin, hold on heparin drip at this time. Given 5 mg bolus of IV metoprolol, with only modest improvement of heart rate into the 120s. 1232 Covid is positive. 5 mg IV metoprolol with good response to rate of now 107. P waves are easily distinguishable on telemetry. Patient will be admitted to telemetry/CVC Unit. I have not seen hypoxia, so will hold on dexamethasone for now. Accepted by Dr. Ricardo of the [facility] service. 1310 Thea Disclaimer: Thea Disclaimer: This electronic medical record was generated, in whole or in part, using a voice recognition dictation system. Departure Departure Impression: Primary Impression: Pneumonia due to COVID-19 virus Additional Impressions: Tachycardia CHF (congestive heart failure) Disposition: ADMITTED INPATIENT Admitting Physician: [facility] Condition: GUARDED Referrals: VENKAT GRIJALVA MD (PCP) CHATA DELGADO MD Dec 05, 2020 11:22
[2020-12-05] MEDS ORDERED: PIPERACILLIN/TAZOBACTAM 4.5 GM in IV NORMAL SALINE 100ML 100 ML IV ONE (11:30)
[2020-12-05] MEDS ORDERED: AZITHROMYCIN 250 MG TABLET. PO ONE (11:30)
[2020-12-05] MEDS ORDERED: IV NORMAL SALINE 500ML BAG 500 ML IV ONE (11:30)
[2020-12-05 11:42] LABS: BASO % 0 % (0-3); EOS % 0 % (0-3); HEMOGLOBIN 13.5 g/dL (13.0-17.5); LYMPH # 0.8 x10^3/uL (1.0-4.8); LYMPH % 8 % (24-48); MEAN CORPUSCULAR HEMOGLOBIN 29 pg (25-35); MEAN CORPUSCULAR HGB CONC 35 g/dL (31-37); MEAN CORPUSCULAR VOLUME 83 fL (79-100); MONO # 0.5 x10^3/uL (0.0-1.1); MONO % 5 % (0-9); NEUT # 8.8 x10^3/uL (1.8-7.7); NEUT % 86 % (31-73); PLATELET COUNT 209 x10^3/uL (140-400); RED BLOOD COUNT 4.71 x10^6/uL (4.30-5.70); RED CELL DISTRIBUTION WIDTH 14.2 % (11.5-14.5); WHITE BLOOD COUNT 10.2 x10^3/uL (4.0-11.0)
[2020-12-05 11:52] LABS: CALCIUM 8.3 mg/dL (8.5-10.1); CREATININE 1.4 mg/dL (0.7-1.3); GFR 50.9; POTASSIUM 3.6 mmol/L (3.5-5.1)
[2020-12-05] MEDS ORDERED: METOPROLOL IV PUSH 5 MG/5 ML VIAL. IVP ONE ×2 (12:00→13:00)
[2020-12-05 12:01] LABS: ALBUMIN/GLOBULIN RATIO 0.6 (1.0-1.7); TOTAL BILIRUBIN 1.1 mg/dL (0.2-1.0); TOTAL PROTEIN 7.9 g/dL (6.4-8.2)
--- NOTE | 2020-12-05 12:23 | RAD ---
AP chest. HISTORY: Sepsis, cough, fever, short of breath AP view of the chest was compared with an old study from 2019. Heart is enlarged. There are diffuse b ilateral infiltrates most consistent with atypical or Covid 19 pneumonia. There is mild pleural thick ening similar to an old study. Patient had a previous sternotomy. IMPRESSION: 1. Bilateral hazy infiltrates. Electronically signed by: Ludwin Arora MD (12/05/2020 12:20 PM) [facility]
[2020-12-05 12:27] LABS: BILIRUBIN,URINE MODERATE (NEG); CLARITY,URINE CLEAR; NITRITE,URINE NEGATIVE (NEG); PH,URINE 5.5 (<5.0-8.0); PROTEIN,URINE >=300 mg/dL (NEG-TRACE)
[2020-12-05 12:32] LABS: COLOR,URINE YELLOW
[2020-12-05 12:33] LABS: AMORPHOUS SEDIMENT,UR PRESENT /HPF; BACTERIA,URINE FEW /HPF (0-FEW); HYALINE CASTS, URINE FEW /HPF
[2020-12-05 12:36] LABS: INFLUENZA A PATIENT NEGATIVE (NEGATIVE); INFLUENZA B PATIENT NEGATIVE (NEGATIVE)
[2020-12-05] MEDS ORDERED: guaiFENesin/CODEINE 100mg/10mg 5 ML LIQUID PO PRN (14:00)
[2020-12-05] MEDS ORDERED: ZOLPIDEM 5 MG TABLET. PO PRN (14:00)
[2020-12-05] MEDS ORDERED: ACETAMINOPHEN 325 MG TABLET. PO PRN (14:00)
[2020-12-05] MEDS ORDERED: ELECTROLYTE (NON-ICU) PROTOCOL. MC PRN (14:00)
[2020-12-05] MEDS ORDERED: PIP/TAZO PER PHARMACY MC PRN (14:00)
[2020-12-05] MEDS ORDERED: oxyCODONE/APAP 5/325 1 TAB TABLET PO PRN ×2 (14:00)
[2020-12-05] MEDS ORDERED: ONDANSETRON PF 4 MG/2 ML VIAL. IVP PRN (14:00)
[2020-12-05] MEDS ORDERED: CALCIUM CARBONATE 500 MG TAB.CHEW PO PRN (14:00)
[2020-12-05] MEDS ORDERED: ALBUTEROL SULFATE 8GM INHALER. INH PRN (14:00)
[2020-12-05] MEDS ORDERED: HEPARIN for SUB-Q USE 5,000 UNIT/ML VIAL. SQ SCH (15:00)
[2020-12-05] MEDS: DEXAMETHASONE SOD PHOS 4 MG/ML VIAL IVP SCH (15:40)
--- NOTE | 2020-12-05 15:53 | PDOC1 ---
History and Physical Date of Service: DOS: DATE: 12/05/20 TIME: 15:44 Chief Complaint: Problems: (1) CHF (congestive heart failure) (2) Pneumonia due to COVID-19 virus Chief Complain: Shortness of breath History of Present Illness: HPI: Patient is a 65-year-old male presented to the emergency room today with worsening cough shortness of breath. Patient reports that he started having symptoms last week with trouble breathing. He said that is slowly progressing worse causing him to present today. Reports a productive cough with yellow sputum no blood in sputum. Does not wear oxygen at home. Says he has had chills at home and thinks he has had a fever but never checked his temperature. He denies any Covid contacts. He has received both vaccines I evaluated the patient he was in bed on 3 L nasal cannula. He was still having a pretty difficult time breathing. Patient does have a history of BPH causing him to get up multiple times throughout the night to urinate. We will try Flomax for him He denies any sort of headache, dizziness, vision changes, chest pain, abdominal pain, dysuria. Past Medical/Surgical History: PMH/PSH: CAD, CHF, CVA, Diabetes-Type II, High Cholesterol, Hypertension, NH, Seizure, TBI Allergies: Allergies: Coded Allergies: No Known Drug Allergies (Unverified , 09/07/16) Family History: Family History: Reviewed with patient no known Social History: Social History: Denies alcohol tobacco or drug use Current Medications: Current Medications Current Medications Sodium Chloride 500 ml @ 500 mls/hr 1X ONCE IV Last administered on 12/05/20at 11:30; Start 12/05/20 at 11:30; Stop 12/05/20 at 12:29; Status DC Piperacillin Sod/ Tazobactam Sod 4.5 gm/Sodium Chloride 100 ml @ 200 mls/hr 1X ONCE IV Last administered on 12/05/20at 11:30; Start 12/05/20 at 11:30; Stop 12/05/20 at 11:59; Status DC Azithromycin (Zithromax) 500 mg 1X ONCE PO Last administered on 12/05/20at 11:59; Start 12/05/20 at 11:30; Stop 12/05/20 at 11:31; Status DC Metoprolol Tartrate (Lopressor Vial) 5 mg 1X ONCE IVP Last administered on 12/05/20at 12:00; Start 12/05/20 at 12:00; Stop 12/05/20 at 12:01; Status DC Metoprolol Tartrate (Lopressor Vial) 5 mg 1X ONCE IVP ; Start 12/05/20 at 13: 00; Stop 12/05/20 at 13:01; Status DC Ondansetron HCl (Zofran) 4 mg PRN Q6HRS PRN IVP NAUSEA/VOMITING; Start 12/05/20 at 14:00 Calcium Carbonate/ Glycine (Tums) 500 mg PRN Q3HRS PRN PO UPSET STOMACH; Start 12/05/20 at 14:00 Zolpidem Tartrate (Ambien) 5 mg PRN QHS PRN PO INSOMNIA, MAY REPEAT IN 1HR; Start 12/05/20 at 14:00 Info (Non-Icu Electrolyte Protocol) 1 ea PRN DAILY PRN MC SEE COMMENTS; Start 12/05/20 at 14:00 Oxycodone/ Acetaminophen (Percocet 5/325) 1 tab PRN Q4HRS PRN PO MILD PAIN, 1ST CHOICE; Start 12/05/20 at 14:00 Oxycodone/ Acetaminophen (Percocet 5/325) 2 tab PRN Q4HRS PRN PO MODERATE PAIN, SEVERE PAIN; Start 12/05/20 at 14:00 Acetaminophen (Tylenol) 650 mg PRN Q6HRS PRN PO Headaches, Temp > 101.5F; Start 12/05/20 at 14:00 Senna/Docusate Sodium (Senna Plus) 1 tab BID PO ; Start 12/05/20 at 21:00 Heparin Sodium (Porcine) (Heparin Sodium) 5,000 unit Q8HRS SQ Last administered on 12/05/20at 15:41; Start 12/05/20 at 15:00 Remdesivir 200 mg/ Sodium Chloride 210 ml @ 210 mls/hr 1X ONCE IV ; Start 12/05/20 at 16:00; Stop 12/05/20 at 16:59 Remdesivir 100 mg/ Sodium Chloride 230 ml @ 460 mls/hr Q24H IV ; Start 12/06/20 at 16:00; Stop 12/09/20 at 16:29 Albuterol Sulfate (Ventolin Hfa) 2 puff PRN Q4HRS PRN INH SHORTNESS OF BREATH; Start 12/05/20 at 14:00 Aspirin (Ecotrin) 81 mg DAILYWBKFT PO ; Start 12/06/20 at 08:00 Atorvastatin Calcium (Lipitor) 20 mg HS PO ; Start 12/05/20 at 21:00 Carvedilol (Coreg) 12.5 mg BIDWMEALS PO ; Start 12/05/20 at 17:00 Clopidogrel Bisulfate (Plavix) 75 mg DAILYWBKFT PO ; Start 12/06/20 at 08:00 Donepezil HCl (Aricept) 10 mg HS PO ; Start 12/05/20 at 21:00 Furosemide (Lasix) 40 mg DAILY PO ; Start 12/06/20 at 09:00 Lisinopril (Prinivil) 20 mg DAILY PO ; Start 12/06/20 at 09:00 Pantoprazole Sodium (Protonix) 40 mg DAILYAC PO ; Start 12/06/20 at 07:30 Spironolactone (Aldactone) 25 mg DAILY PO ; Start 12/06/20 at 09:00 Dexamethasone Sodium Phosphate (Decadron) 6 mg DAILY IVP Last administered on 12/05/20at 15:40; Start 12/05/20 at 14:00 Piperacillin Sod/ Tazobactam Sod (Zosyn Per Pharmacy) 1 each PRN DAILY PRN MC SEE COMMENTS; Start 12/05/20 at 14:00 Guaifenesin/ Codeine Phosphate (Robitussin Ac) 5 ml PRN Q6HRS PRN PO COUGH; Start 12/05/20 at 14:00 Piperacillin Sod/ Tazobactam Sod 3.375 gm/Sodium Chloride 50 ml @ 100 mls/hr Q6HRS IV ; Start 12/05/20 at 18:00 Active Scripts Active Carvedilol (Carvedilol) 12.5 Mg Tablet 12.5 Mg PO BIDWMEALS 90 Days Pantoprazole Sodium (Pantoprazole Sodium) 40 Mg Tablet.dr 40 Mg PO DAILYAC 30 Days Aldactone (Spironolactone) 25 Mg Tablet 25 Mg PO DAILY Lisinopril 20 Mg Tablet 20 Mg PO DAILY Furosemide 40 Mg Tablet 40 Mg PO DAILY Clopidogrel (Clopidogrel Bisulfate) 75 Mg Tablet 75 Mg PO DAILYWBKFT Aspirin Ec (Aspirin) 81 Mg Tablet.dr 81 Mg PO DAILYWBKFT Coreg (Carvedilol) 6.25 Mg Tablet 6.25 Mg PO BIDWMEALS Metformin Hcl 500 Mg Tablet 1 Tab PO BID Reported Vitamin D (Cholecalciferol (Vitamin D3)) 1,000 Unit Capsule 5,000 Unit PO WEEKLY Aricept (Donepezil Hcl) 10 Mg Tablet 10 Mg PO HS Lipitor (Atorvastatin Calcium) 20 Mg Tablet 20 Mg PO HS Ferrous Sulfate 325 Mg Tablet 325 Mg PO BID ROS: Review of Systems Review of System Unless noted in HPI 14 point review systems was negative Physical Exam: Vital Signs: Vital Signs Date Time Temp Pulse Resp B/P (MAP) Pulse Ox O2 Delivery O2 Flow Rate FiO2 12/05/20 13:14 104 140/72 (94) 100 Room Air 2.0 12/05/20 11:20 103.0 28 103.0 Physcial Exam: GEN: No apparent distress. Alert and oriented HEENT: Normal cephalic, atraumatic, external auditory canals are patent EYES: Extraocular muscles are intact, pupil are equally round and reactive to light and accommodation MUSCULOSKELETAL: Well developed , well nourished, good range of motion ENDOCRINE: No thyromegaly was palpated LYMPHATICS: No cervical chain or axillary nodes were noted HEMATOPOIETIC: No bruising NECK: Supple, no JVD, no thyromegaly was noted LUNGS: Clear to auscultation in all lung gonzalez without rhonchi or wheezing HEART: RRR, S!, S2 present. Peripheral pulses intact, no obvious murmurs noted ABDOMEN: Soft, nontender. Positive bowel sounds, no organomegaly, normal melvi l sounds EXTREMITIES: Without clubbing, cyanosis, or edema. Pedal pulses intact. Negative Homans sign NEUROLOGIC: Normal speech and tone. A&O x 3, moves all extremities, no obvious focal deficits PSYCHIATRIC: Normal affect, normal mood. Stable SKIN: No ulcerations or rashes, good skin turgor, no jaundice VASCULAR: Good capillary refill, neurovascular bundle appears to be intact Labs: Labs: Laboratory Tests Test 12/05/20 11:30 12/05/20 12:00 12/05/20 12:20 White Blood Count 10.2 x10^3/uL (4.0-11.0) Red Blood Count 4.71 x10^6/uL (4.30-5.70) Hemoglobin 13.5 g/dL (13.0-17.5) Hematocrit 39.0 % (39.0-53.0) Mean Corpuscular Volume 83 fL (79-100) Mean Corpuscular Hemoglobin 29 pg (25-35) Mean Corpuscular Hemoglobin Concent 35 g/dL (31-37) Red Cell Distribution Width 14.2 % (11.5-14.5) Platelet Count 209 x10^3/uL (140-400) Neutrophils (%) (Auto) 86 % (31-73) Lymphocytes (%) (Auto) 8 % (24-48) Monocytes (%) (Auto) 5 % (0-9) Eosinophils (%) (Auto) 0 % (0-3) Basophils (%) (Auto) 0 % (0-3) Neutrophils # (Auto) 8.8 x10^3/uL (1.8-7.7) Lymphocytes # (Auto) 0.8 x10^3/uL (1.0-4.8) Monocytes # (Auto) 0.5 x10^3/uL (0.0-1.1) Eosinophils # (Auto) 0.0 x10^3/uL (0.0-0.7) Basophils # (Auto) 0.0 x10^3/uL (0.0-0.2) Sodium Level 138 mmol/L (136-145) Potassium Level 3.6 mmol/L (3.5-5.1) Chloride Level 100 mmol/L (98-107) Carbon Dioxide Level 28 mmol/L (21-32) Anion Gap 10 (6-14) Blood Urea Nitrogen 17 mg/dL (8-26) Creatinine 1.4 mg/dL (0.7-1.3) Estimated GFR (Cockcroft-Gault) 50.9 BUN/Creatinine Ratio 12 (6-20) Glucose Level 143 mg/dL (70-99) Lactic Acid Level 2.0 mmol/L (0.4-2.0) Calcium Level 8.3 mg/dL (8.5-10.1) Total Bilirubin 1.1 mg/dL (0.2-1.0) Aspartate Amino Transf (AST/SGOT) 18 U/L (15-37) Alanine Aminotransferase (ALT/SGPT) 16 U/L (16-63) Alkaline Phosphatase 54 U/L (46-116) Troponin I Quantitative 0.071 ng/mL (0.000-0.055) UH-Yuy-O-Type Natriuretic Peptide 3703 pg/mL (0-124) Total Protein 7.9 g/dL (6.4-8.2) Albumin 3.0 g/dL (3.4-5.0) Albumin/Globulin Ratio 0.6 (1.0-1.7) Influenza Type A Antigen Negative (NEGATIVE) Influenza Type B Antigen Negative (NEGATIVE) SARS-CoV-2 Antigen (Rapid) Positive (NEGATIVE) Urine Collection Type U cath Urine Color Yellow Urine Clarity Clear Urine pH 5.5 (<5.0-8.0) Urine Specific [place] >=1.030 (1.000-1.030) Urine Protein >=300 mg/dL (NEG-TRACE) Urine Glucose (UA) 100 mg/dL (NEG) Urine Ketones (Stick) Trace mg/dL (NEG) Urine Blood Negative (NEG) Urine Nitrite Negative (NEG) Urine Bilirubin Moderate (NEG) Urine Urobilinogen Dipstick 4.0 mg/dL (0.2 mg/dL) Urine Leukocyte Esterase Negative (NEG) Urine RBC 1-2 /HPF (0-2) Urine WBC 1-4 /HPF (0-4) Urine Transitional Epithelial Cells Occ /LPF Urine Amorphous Sediment Present /HPF Urine Bacteria Few /HPF (0-FEW) Urine Hyaline Casts Few /HPF Laboratory Tests Test 12/05/20 11:30 12/05/20 12:00 12/05/20 12:20 White Blood Count 10.2 x10^3/uL (4.0-11.0) Red Blood Count 4.71 x10^6/uL (4.30-5.70) Hemoglobin 13.5 g/dL (13.0-17.5) Hematocrit 39.0 % (39.0-53.0) Mean Corpuscular Volume 83 fL (79-100) Mean Corpuscular Hemoglobin 29 pg (25-35) Mean Corpuscular Hemoglobin Concent 35 g/dL (31-37) Red Cell Distribution Width 14.2 % (11.5-14.5) Platelet Count 209 x10^3/uL (140-400) Neutrophils (%) (Auto) 86 % (31-73) Lymphocytes (%) (Auto) 8 % (24-48) Monocytes (%) (Auto) 5 % (0-9) Eosinophils (%) (Auto) 0 % (0-3) Basophils (%) (Auto) 0 % (0-3) Neutrophils # (Auto) 8.8 x10^3/uL (1.8-7.7) Lymphocytes # (Auto) 0.8 x10^3/uL (1.0-4.8) Monocytes # (Auto) 0.5 x10^3/uL (0.0-1.1) Eosinophils # (Auto) 0.0 x10^3/uL (0.0-0.7) Basophils # (Auto) 0.0 x10^3/uL (0.0-0.2) Sodium Level 138 mmol/L (136-145) Potassium Level 3.6 mmol/L (3.5-5.1) Chloride Level 100 mmol/L (98-107) Carbon Dioxide Level 28 mmol/L (21-32) Anion Gap 10 (6-14) Blood Urea Nitrogen 17 mg/dL (8-26) Creatinine 1.4 mg/dL (0.7-1.3) Estimated GFR (Cockcroft-Gault) 50.9 BUN/Creatinine Ratio 12 (6-20) Glucose Level 143 mg/dL (70-99) Lactic Acid Level 2.0 mmol/L (0.4-2.0) Calcium Level 8.3 mg/dL (8.5-10.1) Total Bilirubin 1.1 mg/dL (0.2-1.0) Aspartate Amino Transf (AST/SGOT) 18 U/L (15-37) Alanine Aminotransferase (ALT/SGPT) 16 U/L (16-63) Alkaline Phosphatase 54 U/L (46-116) Troponin I Quantitative 0.071 ng/mL (0.000-0.055) LA-Ypx-N-Type Natriuretic Peptide 3703 pg/mL (0-124) Total Protein 7.9 g/dL (6.4-8.2) Albumin 3.0 g/dL (3.4-5.0) Albumin/Globulin Ratio 0.6 (1.0-1.7) Influenza Type A Antigen Negative (NEGATIVE) Influenza Type B Antigen Negative (NEGATIVE) SARS-CoV-2 Antigen (Rapid) Positive (NEGATIVE) Urine Collection Type U cath Urine Color Yellow Urine Clarity Clear Urine pH 5.5 (<5.0-8.0) Urine Specific [place] >=1.030 (1.000-1.030) Urine Protein >=300 mg/dL (NEG-TRACE) Urine Glucose (UA) 100 mg/dL (NEG) Urine Ketones (Stick) Trace mg/dL (NEG) Urine Blood Negative (NEG) Urine Nitrite Negative (NEG) Urine Bilirubin Moderate (NEG) Urine Urobilinogen Dipstick 4.0 mg/dL (0.2 mg/dL) Urine Leukocyte Esterase Negative (NEG) Urine RBC 1-2 /HPF (0-2) Urine WBC 1-4 /HPF (0-4) Urine Transitional Epithelial Cells Occ /LPF Urine Amorphous Sediment Present /HPF Urine Bacteria Few /HPF (0-FEW) Urine Hyaline Casts Few /HPF Assessment/Plan Assessment/Plan Acute hypoxic respiratory failure secondary to COVID-19 pneumonia, history HFrEF, troponinemia, hypertension, diabetes -Patient presenting with week history worsening shortness of breath cough fevers. He has received both covid vaccines. Covid positive on presentation imaging showing hazy opacities -Admit. Will start patient on Zosyn dexamethasone and remdesivir. As needed guaifenesin. -Given history of receiving Covid vaccines and positive now consult pulmonary -Patient has a history of heart failure. Also has increasing troponin second doubled from initial. Ejection fraction around 30% 2018. -Consult to cardiology -Home meds resumed as indicated. Will do insulin as sliding scale and long- acting until daily insulin requirement established -DVT prophylaxis -Wean had oxygen as tolerated -Cardiac diet limit fluid intake Justifications for Admission Other Justification KALANI BROTHERS MD Dec 05, 2020 15:53
[2020-12-05] MEDS ORDERED: REMDESIVIR LOAD in IV NORMAL SALINE 250ML TV IV ONE (16:00)
--- NOTE | 2020-12-05 16:14 | PDOC2 ---
CARDIOLOGY CONSULT NOTE DATE OF SERVICE: DATE: 12/05/20 TIME: 16:07 CHIEF COMPLAINT: Shortness of breath HPI: 65-year-old male presented to the hospital in the setting of cough and shortness of breath. He was found to be positive for coronavirus. Cardiology is asked to evaluate him due to an elevated troponin of 1.5. He has past medical history as noted below. History is otherwise limited due to history of aphasia in the set ting of traumatic brain injury. PMHX: 1. Coronary artery disease status post bypass in 2013 with 5 vessels 2. History of ischemic cardiomyopathy with last known ejection fraction of 35% in 2019 3. Hypertension 4. Type 2 diabetes 5. Traumatic brain injury with expressive aphasia 6. Dementia 7. Dyslipidemia SOCHX: Unable to be obtained FAMHX: Noncontributory CURRENT MEDS: Current Medications Medications (Trade) Dose Ordered Sig/Grace Route PRN Reason Start Time Stop Time Status Last Admin Dose Admin Sodium Chloride 500 ml @ 500 mls/hr 1X ONCE IV 12/05/20 11:30 12/05/20 12:29 DC 12/05/20 11:30 Piperacillin Sod/ Tazobactam Sod 4.5 gm/Sodium Chloride 100 ml @ 200 mls/hr 1X ONCE IV 12/05/20 11:30 12/05/20 11:59 DC 12/05/20 11:30 Azithromycin (Zithromax) 500 mg 1X ONCE PO 12/05/20 11:30 12/05/20 11:31 DC 12/05/20 11:59 Metoprolol Tartrate (Lopressor Vial) 5 mg 1X ONCE IVP 12/05/20 12:00 12/05/20 12:01 DC 12/05/20 12:00 Heparin Sodium (Porcine) (Heparin Sodium) 5,000 unit Q8HRS SQ 12/05/20 15:00 12/05/20 15:41 Remdesivir 200 mg/ Sodium Chloride 210 ml @ 210 mls/hr 1X ONCE IV 12/05/20 16:00 12/05/20 16:59 12/05/20 16:00 Dexamethasone Sodium Phosphate (Decadron) 6 mg DAILY IVP 12/05/20 14:00 12/05/20 15:40 ALLERGIES: Allergies Coded Allergies Type Severity Reaction Last Updated Verified No Known Drug Allergies 09/07/16 No ROS: Negative for 10 out of 14 systems reviewed unless otherwise mentioned above in HPI PHYSICAL EXAM: Vital Signs/I&O: Vital Signs Date Time Temp Pulse Resp B/P (MAP) Pulse Ox O2 Delivery O2 Flow Rate FiO2 12/05/20 13:14 104 140/72 (94) 100 Room Air 2.0 12/05/20 11:20 103.0 28 103.0 Physical Exam: Deferred in the setting of coronavirus pandemic DIAGNOSTIC TESTING: EKG reviewed: Atrial fibrillation/flutter with aberrant conduction. Likely underlying left bundle branch block and left ventricular hypertrophy Echocardiogram as noted above from 2019 Chest x-ray with bilateral infiltrates Cardiac enzymes elevated with troponin of 1.5 up from 0.071 BNP 3700 Creatinine 1.4 Coronavirus PCR testing pending but rapid testing is positive ASSESSMENT: 1. Non-STEMI: Likely type II in the setting of coronavirus pneumonia and atrial fibrillation with rapid ventricular spots 2. Ischemic cardiomyopathy status post prior bypass with an EF of 30 to 35% in 2019 3. New onset atrial fibrillation 4. Hypertension 5. Dyslipidemia 6. Type 2 diabetes PLAN: 1. Agree with supportive care with antibiotics and antiviral therapies for coronavirus 2. Start anticoagulation with Lovenox and continue cardiac enzyme monitoring. 3. Would not aggressively rate control at this time given his acute insult but will start low-dose beta-yared with metoprolol 25 mg p.o. twice daily 4. No need for aggressive diuresis given that his oxygen status is stable. 5. We will repeat echo when more stable in the next 24 to 48 hours. 6. Start ASA 81mg daily MICHELLE DAVIS MD Dec 05, 2020 16:13
[2020-12-05] MEDS ORDERED: DEXTROSE 50% 25 GM / 50ML DISP.SYRIN. IV PRN (16:15)
[2020-12-05] MEDS ORDERED: CARVEDILOL 12.5 MG TABLET. PO SCH (17:00)
[2020-12-05] MEDS: TAMSULOSIN 0.4 MG CAP.ER.24H. PO SCH ×2 (17:02→23:06)
[2020-12-05] MEDS: INSULIN LISPRO 300 UNITS/3 ML VIAL. SQ SCH (17:06)
[2020-12-05] MEDS: PIPERACILLIN/TAZOBACTAM 3.375 GM in IV NORMAL SALINE 50ML 50 ML IV SCH ×2 (17:07→23:09)
[2020-12-05 19:45] VITALS: BP 125/76
[2020-12-05 22:40] VITALS: BP 119/62
[2020-12-05] MEDS: DONEPEZIL HCL 10 MG TABLET. PO SCH (23:04)
[2020-12-05] MEDS: SENNOSIDES/DOCUSATE 8.6/50MG TABLET. PO SCH (23:05)
[2020-12-05] MEDS: METOPROLOL TART IMMED RELEASE 25 MG TABLET. PO SCH (23:05)
[2020-12-05] MEDS: ATORVASTATIN CALCIUM 20 MG TABLET PO SCH (23:06)
[2020-12-05] MEDS: INSULIN GLARGINE SYRINGE. SQ SCH (23:08)
--- NOTE | 2020-12-06 01:11 | EKG ---
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
[2020-12-06 02:50] VITALS: BP 139/80
[2020-12-06] MEDS: PIPERACILLIN/TAZOBACTAM 3.375 GM in IV NORMAL SALINE 50ML 50 ML IV SCH ×4 (05:28→23:08)
[2020-12-06 07:00] VITALS: BP 134/81
[2020-12-06] MEDS: INSULIN LISPRO 300 UNITS/3 ML VIAL. SQ SCH ×3 (07:51→16:56)
[2020-12-06] MEDS ORDERED: ASPIRIN ENTERIC COATED 81 MG TABLET.DR. PO SCH (08:00)
[2020-12-06] MEDS: PANTOPRAZOLE 40 MG TABLET.DR. PO SCH (08:38)
[2020-12-06] MEDS: SPIRONOLACTONE 25 MG TABLET PO SCH (08:39)
[2020-12-06] MEDS: FUROSEMIDE 40 MG TABLET. PO SCH (08:39)
[2020-12-06] MEDS: DEXAMETHASONE SOD PHOS 4 MG/ML VIAL IVP SCH (08:39)
[2020-12-06] MEDS: ASPIRIN ENTERIC COATED 81 MG TABLET.DR. PO SCH (08:39)
[2020-12-06] MEDS: SENNOSIDES/DOCUSATE 8.6/50MG TABLET. PO SCH ×2 (08:39→21:00)
[2020-12-06] MEDS: METOPROLOL TART IMMED RELEASE 25 MG TABLET. PO SCH ×2 (08:40→23:11)
[2020-12-06] MEDS: CLOPIDOGREL BISULFATE 75 MG TABLET PO SCH (08:40)
[2020-12-06] MEDS: LISINOPRIL 20 MG TABLET PO SCH (08:40)
--- NOTE | 2020-12-06 08:44 | PDOC ---
PULMONARY PROGRESS NOTES DATE: 12/06/20 TIME: 08:44 Vitals Vital Signs Date Time Temp Pulse Resp B/P (MAP) Pulse Ox O2 Delivery O2 Flow Rate FiO2 12/06/20 08:40 81 134/81 12/06/20 07:00 98.0 22 96 Nasal Cannula 2.0 98.0 Labs Laboratory Tests Test 12/05/20 11:30 12/05/20 12:00 12/05/20 12:20 12/05/20 14:50 White Blood Count 10.2 x10^3/uL (4.0-11.0) Red Blood Count 4.71 x10^6/uL (4.30-5.70) Hemoglobin 13.5 g/dL (13.0-17.5) Hematocrit 39.0 % (39.0-53.0) Mean Corpuscular Volume 83 fL (79-100) Mean Corpuscular Hemoglobin 29 pg (25-35) Mean Corpuscular Hemoglobin Concent 35 g/dL (31-37) Red Cell Distribution Width 14.2 % (11.5-14.5) Platelet Count 209 x10^3/uL (140-400) Neutrophils (%) (Auto) 86 % (31-73) Lymphocytes (%) (Auto) 8 % (24-48) Monocytes (%) (Auto) 5 % (0-9) Eosinophils (%) (Auto) 0 % (0-3) Basophils (%) (Auto) 0 % (0-3) Neutrophils # (Auto) 8.8 x10^3/uL (1.8-7.7) Lymphocytes # (Auto) 0.8 x10^3/uL (1.0-4.8) Monocytes # (Auto) 0.5 x10^3/uL (0.0-1.1) Eosinophils # (Auto) 0.0 x10^3/uL (0.0-0.7) Basophils # (Auto) 0.0 x10^3/uL (0.0-0.2) Sodium Level 138 mmol/L (136-145) Potassium Level 3.6 mmol/L (3.5-5.1) Chloride Level 100 mmol/L (98-107) Carbon Dioxide Level 28 mmol/L (21-32) Anion Gap 10 (6-14) Blood Urea Nitrogen 17 mg/dL (8-26) Creatinine 1.4 mg/dL (0.7-1.3) Estimated GFR (Cockcroft-Gault) 50.9 BUN/Creatinine Ratio 12 (6-20) Glucose Level 143 mg/dL (70-99) Lactic Acid Level 2.0 mmol/L (0.4-2.0) Calcium Level 8.3 mg/dL (8.5-10.1) Total Bilirubin 1.1 mg/dL (0.2-1.0) Aspartate Amino Transf (AST/SGOT) 18 U/L (15-37) Alanine Aminotransferase (ALT/SGPT) 16 U/L (16-63) Alkaline Phosphatase 54 U/L (46-116) Troponin I Quantitative 0.071 ng/mL (0.000-0.055) 1.501 ng/mL (0.000-0.055) SK-Gdj-H-Type Natriuretic Peptide 3703 pg/mL (0-124) Total Protein 7.9 g/dL (6.4-8.2) Albumin 3.0 g/dL (3.4-5.0) Albumin/Globulin Ratio 0.6 (1.0-1.7) Influenza Type A Antigen Negative (NEGATIVE) Influenza Type B Antigen Negative (NEGATIVE) SARS-CoV-2 Antigen (Rapid) Positive (NEGATIVE) Urine Collection Type U cath Urine Color Yellow Urine Clarity Clear Urine pH 5.5 (<5.0-8.0) Urine Specific [place] >=1.030 (1.000-1.030) Urine Protein >=300 mg/dL (NEG-TRACE) Urine Glucose (UA) 100 mg/dL (NEG) Urine Ketones (Stick) Trace mg/dL (NEG) Urine Blood Negative (NEG) Urine Nitrite Negative (NEG) Urine Bilirubin Moderate (NEG) Urine Urobilinogen Dipstick 4.0 mg/dL (0.2 mg/dL) Urine Leukocyte Esterase Negative (NEG) Urine RBC 1-2 /HPF (0-2) Urine WBC 1-4 /HPF (0-4) Urine Transitional Epithelial Cells Occ /LPF Urine Amorphous Sediment Present /HPF Urine Bacteria Few /HPF (0-FEW) Urine Hyaline Casts Few /HPF Test 12/05/20 16:16 12/05/20 21:17 12/06/20 07:23 Glucose (Fingerstick) 194 mg/dL (70-99) 235 mg/dL (70-99) 165 mg/dL (70-99) Laboratory Tests Test 12/05/20 11:30 12/05/20 12:00 12/05/20 12:20 12/05/20 14:50 White Blood Count 10.2 x10^3/uL (4.0-11.0) Red Blood Count 4.71 x10^6/uL (4.30-5.70) Hemoglobin 13.5 g/dL (13.0-17.5) Hematocrit 39.0 % (39.0-53.0) Mean Corpuscular Volume 83 fL (79-100) Mean Corpuscular Hemoglobin 29 pg (25-35) Mean Corpuscular Hemoglobin Concent 35 g/dL (31-37) Red Cell Distribution Width 14.2 % (11.5-14.5) Platelet Count 209 x10^3/uL (140-400) Neutrophils (%) (Auto) 86 % (31-73) Lymphocytes (%) (Auto) 8 % (24-48) Monocytes (%) (Auto) 5 % (0-9) Eosinophils (%) (Auto) 0 % (0-3) Basophils (%) (Auto) 0 % (0-3) Neutrophils # (Auto) 8.8 x10^3/uL (1.8-7.7) Lymphocytes # (Auto) 0.8 x10^3/uL (1.0-4.8) Monocytes # (Auto) 0.5 x10^3/uL (0.0-1.1) Eosinophils # (Auto) 0.0 x10^3/uL (0.0-0.7) Basophils # (Auto) 0.0 x10^3/uL (0.0-0.2) Sodium Level 138 mmol/L (136-145) Potassium Level 3.6 mmol/L (3.5-5.1) Chloride Level 100 mmol/L (98-107) Carbon Dioxide Level 28 mmol/L (21-32) Anion Gap 10 (6-14) Blood Urea Nitrogen 17 mg/dL (8-26) Creatinine 1.4 mg/dL (0.7-1.3) Estimated GFR (Cockcroft-Gault) 50.9 BUN/Creatinine Ratio 12 (6-20) Glucose Level 143 mg/dL (70-99) Lactic Acid Level 2.0 mmol/L (0.4-2.0) Calcium Level 8.3 mg/dL (8.5-10.1) Total Bilirubin 1.1 mg/dL (0.2-1.0) Aspartate Amino Transf (AST/SGOT) 18 U/L (15-37) Alanine Aminotransferase (ALT/SGPT) 16 U/L (16-63) Alkaline Phosphatase 54 U/L (46-116) Troponin I Quantitative 0.071 ng/mL (0.000-0.055) 1.501 ng/mL (0.000-0.055) NB-Hrk-N-Type Natriuretic Peptide 3703 pg/mL (0-124) Total Protein 7.9 g/dL (6.4-8.2) Albumin 3.0 g/dL (3.4-5.0) Albumin/Globulin Ratio 0.6 (1.0-1.7) Influenza Type A Antigen Negative (NEGATIVE) Influenza Type B Antigen Negative (NEGATIVE) SARS-CoV-2 Antigen (Rapid) Positive (NEGATIVE) Urine Collection Type U cath Urine Color Yellow Urine Clarity Clear Urine pH 5.5 (<5.0-8.0) Urine Specific [place] >=1.030 (1.000-1.030) Urine Protein >=300 mg/dL (NEG-TRACE) Urine Glucose (UA) 100 mg/dL (NEG) Urine Ketones (Stick) Trace mg/dL (NEG) Urine Blood Negative (NEG) Urine Nitrite Negative (NEG) Urine Bilirubin Moderate (NEG) Urine Urobilinogen Dipstick 4.0 mg/dL (0.2 mg/dL) Urine Leukocyte Esterase Negative (NEG) Urine RBC 1-2 /HPF (0-2) Urine WBC 1-4 /HPF (0-4) Urine Transitional Epithelial Cells Occ /LPF Urine Amorphous Sediment Present /HPF Urine Bacteria Few /HPF (0-FEW) Urine Hyaline Casts Few /HPF Test 12/05/20 16:16 12/05/20 21:17 12/06/20 07:23 Glucose (Fingerstick) 194 mg/dL (70-99) 235 mg/dL (70-99) 165 mg/dL (70-99) Medications Active Scripts Medications Dose Route/Sig Max Daily Dose Days Date Category Carvedilol (Carvedilol) 12.5 Mg Tablet 12.5 Mg PO BIDWMEALS 90 03/05/18 Rx Vitamin D (Cholecalciferol (Vitamin D3)) 1,000 Unit Capsule 5,000 Unit PO WEEKLY 03/05/18 Reported Aricept (Donepezil Hcl) 10 Mg Tablet 10 Mg PO HS 03/05/18 Reported Lipitor (Atorvastatin Calcium) 20 Mg Tablet 20 Mg PO HS 03/05/18 Reported Ferrous Sulfate 325 Mg Tablet 325 Mg PO BID 03/05/18 Reported Pantoprazole Sodium (Pantoprazole Sodium) 40 Mg Tablet.dr 40 Mg PO DAILYAC 30 09/08/16 Rx Aldactone (Spironolactone) 25 Mg Tablet 25 Mg PO DAILY 02/29/16 Rx Lisinopril 20 Mg Tablet 20 Mg PO DAILY 02/29/16 Rx Furosemide 40 Mg Tablet 40 Mg PO DAILY 02/29/16 Rx Clopidogrel (Clopidogrel Bisulfate) 75 Mg Tablet 75 Mg PO DAILYWBKFT 02/29/16 Rx Aspirin Ec (Aspirin) 81 Mg Tablet.dr 81 Mg PO DAILYWBKFT 02/29/16 Rx Coreg (Carvedilol) 6.25 Mg Tablet 6.25 Mg PO BIDWMEALS 08/11/14 Rx Metformin Hcl 500 Mg Tablet 1 Tab PO BID 04/01/14 Rx Impression . Full note dictated Acute hypoxemic respiratory failure multifactorial COVID-19 viral pneumonia Ischemic cardiomyopathy BHARATH MEEK MD Dec 06, 2020 08:44
[2020-12-06] MEDS ORDERED: VANCOMYCIN PER PHARMACY MC PRN (10:45)
[2020-12-06] MEDS: DOXYCYCLINE HYCLATE 100 MG TABLET PO SCH ×2 (10:50→23:11)
[2020-12-06] MEDS: MULTIVITAMIN with MINERAL TABLET. PO SCH (10:50)
[2020-12-06 10:57] VITALS: BP 118/69
[2020-12-06] MEDS ORDERED: VANCOMYCIN 1.5 GM in IV NORMAL SALINE 500ML BAG 500 ML IV SCH (11:00)
--- NOTE | 2020-12-06 11:11 | NUR ---
Pharmacy Vancomycin Dosing Note S:Consulted to monitor and dose vancomycin started 12/06/20. O:FUNMILAYO LOVELACE is a 65 year old M with bacteremia. Height: 5 feet, 2 inches Weight: 88.4 kg Dosing Weight: Actual Other Antibiotics: DOXYCYCLINE 100 MG PO BID ZOSYN 3.375G IV Q6HRS LABS: Last BUN: 17 Last Creatinine: 1.4 Creatinine Clearance: 50 mL/min Last WBC: 10.2 Tmax (past 24 hours): 103 Microbiology: BLOOD CX (12/05): STAPH IN 1/4 BOTTLES I/O: 1150/675 A: Patient requires vancomycin for positive blood cultures, goal trough 15-20 mcg/ml. His SCr is 1.4 with an eCrCl of 50 ml/min. Due to elevated SCr will not give loading dose: P: 1. Initiate Vancomycin 1500 mg IV q24h 2. Follow up Trough level on 12/08/20 at 1030 3. Pharmacy will continue to monitor, follow and adjust therapy as needed. GUALBETRO ANGEL [facility] [place], 12/06/20 1110
--- NOTE | 2020-12-06 11:57 | PDOC ---
[facility] PROGRESS NOTE Date of Service DOS: DATE: 12/06/20 TIME: 11:46 Chief Complaint Chief Complaint Acute hypoxic respiratory failure secondary to COVID-19 pneumonia HFrEF hypertension CAD Troponinemia Hx CVA Diabetes-Type II Hyperlipidemia Hx AZ Hx Seizure Hx TBI History of Present Illness History of Present Illness 12/06 Patient seen and examined at bedside Patient sitting up and bed not in acute distress Satting 96 on 2l by NC Discussed COVID protocol with patient Chart reviewed Discussed case with RN and SW Vitals/I&O Vitals/I&O: Vital Signs Date Time Temp Pulse Resp B/P (MAP) Pulse Ox O2 Delivery O2 Flow Rate FiO2 12/06/20 10:57 97.7 75 21 118/69 (85) 95 Nasal Cannula 2.0 97.7 I & O 12/05/20 12/05/20 12/06/20 15:00 23:00 07:00 Intake Total 600 ml 250 ml 300 ml Output Total 425 ml 250 ml Balance 600 ml -175 ml 50 ml Physical Exam General: Alert, Oriented X3, Cooperative Heart: Regular rate, Normal S1, Normal S2 Lungs: Wheezing, Other (Ronchous breath sounds heard in upper airways) Abdomen: Normal bowel sounds, Soft Extremities: No clubbing, No cyanosis Skin: No rashes, No breakdown Labs Labs: Laboratory Tests Test 12/05/20 12:00 12/05/20 12:20 12/05/20 14:50 12/05/20 16:16 Influenza Type A Antigen Negative (NEGATIVE) Influenza Type B Antigen Negative (NEGATIVE) SARS-CoV-2 Antigen (Rapid) Positive (NEGATIVE) Urine Collection Type U cath Urine Color Yellow Urine Clarity Clear Urine pH 5.5 (<5.0-8.0) Urine Specific Ingram >=1.030 (1.000-1.030) Urine Protein >=300 mg/dL (NEG-TRACE) Urine Glucose (UA) 100 mg/dL (NEG) Urine Ketones (Stick) Trace mg/dL (NEG) Urine Blood Negative (NEG) Urine Nitrite Negative (NEG) Urine Bilirubin Moderate (NEG) Urine Urobilinogen Dipstick 4.0 mg/dL (0.2 mg/dL) Urine Leukocyte Esterase Negative (NEG) Urine RBC 1-2 /HPF (0-2) Urine WBC 1-4 /HPF (0-4) Urine Transitional Epithelial Cells Occ /LPF Urine Amorphous Sediment Present /HPF Urine Bacteria Few /HPF (0-FEW) Urine Hyaline Casts Few /HPF Troponin I Quantitative 1.501 ng/mL (0.000-0.055) Glucose (Fingerstick) 194 mg/dL (70-99) Test 12/05/20 21:17 12/06/20 07:23 12/06/20 11:36 Glucose (Fingerstick) 235 mg/dL (70-99) 165 mg/dL (70-99) 175 mg/dL (70-99) Review of Systems Review of Systems: ROS negative Assessment and Plan Assessmemt and Plan Problems Medical Problems: (1) CHF (congestive heart failure) Status: Acute (2) Pneumonia due to COVID-19 virus Status: Acute (3) Tachycardia Status: Acute Acute hypoxic respiratory failure secondary to COVID-19 pneumonia HFrEF Hypertension CAD Troponinemia Hx CVA Diabetes-Type II Hyperlipidemia Hx AZ Hx Seizure Hx TBI Bacteremia Plan Cardiology and pulmonology input appreciated Continue COVID protocol Titrate oxygen PRN Added Multivitamin + minerals Added Doxycycline Added Vancomycin per pharmacy DVT prophylaxis PT/OT Disposition Pending Full Code Comment Review of Relevant I have reviewed the following items tramaine (where applicable) has been applied. Medications: Current Medications Medications (Trade) Dose Ordered Sig/Grace Route PRN Reason Start Time Stop Time Status Last Admin Dose Admin Metoprolol Tartrate (Lopressor Vial) 5 mg 1X ONCE IVP 12/05/20 12:00 12/05/20 12:01 DC 12/05/20 12:00 Senna/Docusate Sodium (Senna Plus) 1 tab BID PO 12/05/20 21:00 12/06/20 08:39 Heparin Sodium (Porcine) (Heparin Sodium) 5,000 unit Q8HRS SQ 12/05/20 15:00 12/05/20 16:18 DC 12/05/20 15:41 Remdesivir 200 mg/ Sodium Chloride 210 ml @ 210 mls/hr 1X ONCE IV 12/05/20 16:00 12/05/20 16:59 DC 12/05/20 16:00 Aspirin (Ecotrin) 81 mg DAILYWBKFT PO 12/06/20 08:00 12/06/20 08:39 Atorvastatin Calcium (Lipitor) 20 mg HS PO 12/05/20 21:00 12/05/20 23:06 Clopidogrel Bisulfate (Plavix) 75 mg DAILYWBKFT PO 12/06/20 08:00 12/06/20 08:40 Donepezil HCl (Aricept) 10 mg HS PO 12/05/20 21:00 12/05/20 23:04 Furosemide (Lasix) 40 mg DAILY PO 12/06/20 09:00 12/06/20 08:39 Lisinopril (Prinivil) 20 mg DAILY PO 12/06/20 09:00 12/06/20 08:40 Pantoprazole Sodium (Protonix) 40 mg DAILYAC PO 12/06/20 07:30 12/06/20 08:38 Spironolactone (Aldactone) 25 mg DAILY PO 12/06/20 09:00 12/06/20 08:39 Dexamethasone Sodium Phosphate (Decadron) 6 mg DAILY IVP 12/05/20 14:00 12/06/20 08:39 Piperacillin Sod/ Tazobactam Sod 3.375 gm/Sodium Chloride 50 ml @ 100 mls/hr Q6HRS IV 12/05/20 18:00 12/06/20 10:50 Tamsulosin HCl (Flomax) 0.4 mg QHS PO 12/05/20 15:45 12/05/20 23:06 Insulin Glargine (Lantus Syringe) 10 unit QHS SQ 12/05/20 21:00 12/05/20 23:08 Insulin Human Lispro (HumaLOG) 0-9 UNITS TIDWMEALS SQ 12/05/20 17:00 12/06/20 07:51 Metoprolol Tartrate (Lopressor) 25 mg BID PO 12/05/20 21:00 12/06/20 08:40 Enoxaparin Sodium (Lovenox 80mg Syringe) 80 mg 1X ONCE SQ 12/05/20 16:15 12/05/20 16:18 DC 12/05/20 17:04 Doxycycline Hyclate (Vibra-Tab) 100 mg BID PO 12/06/20 11:00 12/06/20 10:50 Multivitamins (Thera M Plus) 1 tab DAILY PO 12/06/20 11:00 12/06/20 10:50 Vancomycin HCl (Vanco Per Pharmacy) 1 each PRN DAILY PRN MC SEE COMMENTS 12/06/20 10:45 12/06/20 11:11 Vancomycin HCl 1.5 gm/Sodium Chloride 500 ml @ 250 mls/hr Q24H IV 12/06/20 11:00 12/06/20 10:53 Justifications for Admission Other Justification TORREY HAAS III DO Dec 06, 2020 11:57
[2020-12-06] MEDS: ENOXAPARIN 40 MG/0.4 ML SYRINGE. SQ SCH (14:18)
--- NOTE | 2020-12-06 14:25 | CONS ---
DATE OF CONSULTATION: 12/06/2020 ATTENDING PHYSICIAN: Ted Ricardo MD REASON FOR CONSULTATION: The patient is seen in Pulmonary consultation at the request of Dr. Ricardo for abnormal chest x-ray, increasing shortness of breath. HISTORY OF PRESENT ILLNESS: The patient is a 65-year-old male who presented with shortness of breath and cough. He was evaluated in the Emergency Department. He was found to have a positive SARS-CoV-2 testing. He also had an elevated troponin level. He has been seen by Cardiology. I was asked to see him in consultation. I reviewed his chest x-ray, which revealed bilateral hazy infiltrates. Since last evening, the patient states he now feels better. He is on oxygen supplementation. He was given antibiotic, antiviral and dexamethasone. In addition, he was started on low-dose beta yared, he now feels better. PAST MEDICAL HISTORY: Otherwise, remarkable for coronary artery disease with previous coronary artery bypass grafting in 2013. He has a history of ischemic cardiomyopathy, ejection fraction of 35%, hypertension, type 2 diabetes, traumatic brain disorder with expressive aphasia. There is also a history of dyslipidemia. SOCIAL HISTORY: He quit tobacco in 1976. FAMILY HISTORY: Noncontributory. REVIEW OF SYSTEMS: As indicated above. Otherwise, a 10-point system was reviewed and negative. CURRENT MEDICATIONS: List was reviewed. ALLERGIES: No known drug allergies. PHYSICAL EXAMINATION: VITAL SIGNS: Since admission, he had a fever of 103.0, O2 saturation greater than 92%. NECK: Jugular venous distention was not elevated. LUNGS: He had crackles in the bases. No wheezes. CARDIOVASCULAR: Regular rate and rhythm with S1 and S2, no S3. ABDOMEN: Soft. EXTREMITIES: No clubbing, cyanosis. Minimal edema. LABORATORY DATA: Labs were reviewed. White count was normal. Electrolytes were noted. Troponin level was elevated. BNP was elevated. SARS-CoV-2 on positive rapid test. DIAGNOSTIC DATA: Chest x-ray: Bilateral infiltrates. IMPRESSION: 1. Acute hypoxemic respiratory failure, multifactorial. 2. SARS-CoV-2 pneumonia. 3. Non-ST segment elevation myocardial infarction. 4. History of ischemic cardiomyopathy. 5. New-onset atrial fibrillation. 6. Type 2 diabetes. PLAN: 1. We will continue current support with oxygen supplementation. 2. Remdesivir. 3. Empiric antibiotics. 4. Dexamethasone. 5. Follow Cardiology input. 6. Anticoagulation per Cardiology. 7. Continue empiric antibiotics. I do appreciate the privilege in sharing in this patient's care. ABRIL DR: Juanita TID: [id number]
--- NOTE | 2020-12-06 15:20 | NUR ---
SS following for discharge planning. SS reviewed pt chart and discussed with pt RN. Pt is from home with spouse and is currently requiring oxygen at two liters nasal canula. COVID19 positive. Pt on IV Remdesivir, IV Zosyn, IV Decadron, and PO Doxycycline. SS will continue to follow for discharge planning.
[2020-12-06 15:35] VITALS: BP 120/72
[2020-12-06] MEDS: REMDESIVIR 100mg in NORMAL SALINE 250ML X 4 DAYS IV SCH (16:00)
[2020-12-06 19:50] VITALS: BP 117/75
[2020-12-06 22:20] VITALS: BP 133/80
[2020-12-06] MEDS: INSULIN GLARGINE SYRINGE. SQ SCH (23:10)
[2020-12-06] MEDS: ATORVASTATIN CALCIUM 20 MG TABLET PO SCH (23:11)
[2020-12-06] MEDS: LACTOBACILLUS RHAMNOSUS GG 1 CAPSULE. PO SCH (23:11)
[2020-12-06] MEDS: DONEPEZIL HCL 10 MG TABLET. PO SCH (23:12)
[2020-12-06] MEDS: TAMSULOSIN 0.4 MG CAP.ER.24H. PO SCH (23:12)
[2020-12-07 02:45] VITALS: BP 99/63
[2020-12-07 05:38] LABS: BASO % 0 % (0-3); EOS % 0 % (0-3); HEMATOCRIT 38.1 % (39.0-53.0); HEMOGLOBIN 12.2 g/dL (13.0-17.5); LYMPH # 0.9 x10^3/uL (1.0-4.8); LYMPH % 8 % (24-48); MEAN CORPUSCULAR HEMOGLOBIN 27 pg (25-35); MEAN CORPUSCULAR HGB CONC 32 g/dL (31-37); MEAN CORPUSCULAR VOLUME 84 fL (79-100); MONO # 0.6 x10^3/uL (0.0-1.1); MONO % 5 % (0-9); NEUT # 9.6 x10^3/uL (1.8-7.7); NEUT % 86 % (31-73); PLATELET COUNT 224 x10^3/uL (140-400); RED BLOOD COUNT 4.53 x10^6/uL (4.30-5.70); RED CELL DISTRIBUTION WIDTH 14.7 % (11.5-14.5); WHITE BLOOD COUNT 11.2 x10^3/uL (4.0-11.0)
[2020-12-07 06:10] LABS: CALCIUM 7.9 mg/dL (8.5-10.1); CREATININE 1.2 mg/dL (0.7-1.3); GFR 60.8; POTASSIUM 4.2 mmol/L (3.5-5.1)
[2020-12-07] MEDS: PIPERACILLIN/TAZOBACTAM 3.375 GM in IV NORMAL SALINE 50ML 50 ML IV SCH ×4 (06:29→23:43)
[2020-12-07 07:00] VITALS: BP 130/77
[2020-12-07] MEDS: INSULIN LISPRO 300 UNITS/3 ML VIAL. SQ SCH ×3 (08:00→17:17)
[2020-12-07] MEDS: DEXAMETHASONE SOD PHOS 4 MG/ML VIAL IVP SCH (08:34)
[2020-12-07] MEDS: ASPIRIN ENTERIC COATED 81 MG TABLET.DR. PO SCH (08:35)
[2020-12-07] MEDS: LACTOBACILLUS RHAMNOSUS GG 1 CAPSULE. PO SCH ×2 (08:35→21:14)
[2020-12-07] MEDS: CLOPIDOGREL BISULFATE 75 MG TABLET PO SCH (08:35)
[2020-12-07] MEDS: SENNOSIDES/DOCUSATE 8.6/50MG TABLET. PO SCH ×2 (08:35→21:14)
[2020-12-07] MEDS: DOXYCYCLINE HYCLATE 100 MG TABLET PO SCH ×2 (08:35→21:14)
[2020-12-07] MEDS: MULTIVITAMIN with MINERAL TABLET. PO SCH (08:35)
[2020-12-07] MEDS: FUROSEMIDE 40 MG TABLET. PO SCH (08:36)
[2020-12-07] MEDS: PANTOPRAZOLE 40 MG TABLET.DR. PO SCH (08:36)
[2020-12-07] MEDS: METOPROLOL TART IMMED RELEASE 25 MG TABLET. PO SCH ×2 (08:37→21:15)
[2020-12-07] MEDS: LISINOPRIL 20 MG TABLET PO SCH (08:37)
[2020-12-07] MEDS: SPIRONOLACTONE 25 MG TABLET PO SCH (08:38)
--- NOTE | 2020-12-07 08:44 | PDOC ---
PULMONARY PROGRESS NOTES DATE: 12/07/20 TIME: 08:43 Subjective Patient feels better, less short of air Vitals Vital Signs Date Time Temp Pulse Resp B/P (MAP) Pulse Ox O2 Delivery O2 Flow Rate FiO2 12/07/20 08:37 71 99/63 12/07/20 07:00 97.9 17 98 Nasal Cannula 2.0 97.9 ROS: No Nausea, No Chest Pain, No Abdominal Pain, No Increase Cough General: Alert Lungs: Clear Cardiovascular: S1, S2 Abdomen: Soft, Non-tender Neuro Exam: Alert Extremities: No Edema Skin: Warm Labs Laboratory Tests Test 12/05/20 11:30 12/05/20 12:00 12/05/20 12:20 12/05/20 14:50 White Blood Count 10.2 x10^3/uL (4.0-11.0) Red Blood Count 4.71 x10^6/uL (4.30-5.70) Hemoglobin 13.5 g/dL (13.0-17.5) Hematocrit 39.0 % (39.0-53.0) Mean Corpuscular Volume 83 fL (79-100) Mean Corpuscular Hemoglobin 29 pg (25-35) Mean Corpuscular Hemoglobin Concent 35 g/dL (31-37) Red Cell Distribution Width 14.2 % (11.5-14.5) Platelet Count 209 x10^3/uL (140-400) Neutrophils (%) (Auto) 86 % (31-73) Lymphocytes (%) (Auto) 8 % (24-48) Monocytes (%) (Auto) 5 % (0-9) Eosinophils (%) (Auto) 0 % (0-3) Basophils (%) (Auto) 0 % (0-3) Neutrophils # (Auto) 8.8 x10^3/uL (1.8-7.7) Lymphocytes # (Auto) 0.8 x10^3/uL (1.0-4.8) Monocytes # (Auto) 0.5 x10^3/uL (0.0-1.1) Eosinophils # (Auto) 0.0 x10^3/uL (0.0-0.7) Basophils # (Auto) 0.0 x10^3/uL (0.0-0.2) Sodium Level 138 mmol/L (136-145) Potassium Level 3.6 mmol/L (3.5-5.1) Chloride Level 100 mmol/L (98-107) Carbon Dioxide Level 28 mmol/L (21-32) Anion Gap 10 (6-14) Blood Urea Nitrogen 17 mg/dL (8-26) Creatinine 1.4 mg/dL (0.7-1.3) Estimated GFR (Cockcroft-Gault) 50.9 BUN/Creatinine Ratio 12 (6-20) Glucose Level 143 mg/dL (70-99) Lactic Acid Level 2.0 mmol/L (0.4-2.0) Calcium Level 8.3 mg/dL (8.5-10.1) Total Bilirubin 1.1 mg/dL (0.2-1.0) Aspartate Amino Transf (AST/SGOT) 18 U/L (15-37) Alanine Aminotransferase (ALT/SGPT) 16 U/L (16-63) Alkaline Phosphatase 54 U/L (46-116) Troponin I Quantitative 0.071 ng/mL (0.000-0.055) 1.501 ng/mL (0.000-0.055) UO-Vnt-O-Type Natriuretic Peptide 3703 pg/mL (0-124) Total Protein 7.9 g/dL (6.4-8.2) Albumin 3.0 g/dL (3.4-5.0) Albumin/Globulin Ratio 0.6 (1.0-1.7) Influenza Type A Antigen Negative (NEGATIVE) Influenza Type B Antigen Negative (NEGATIVE) SARS-CoV-2 Antigen (Rapid) Positive (NEGATIVE) Urine Collection Type U cath Urine Color Yellow Urine Clarity Clear Urine pH 5.5 (<5.0-8.0) Urine Specific Tracy >=1.030 (1.000-1.030) Urine Protein >=300 mg/dL (NEG-TRACE) Urine Glucose (UA) 100 mg/dL (NEG) Urine Ketones (Stick) Trace mg/dL (NEG) Urine Blood Negative (NEG) Urine Nitrite Negative (NEG) Urine Bilirubin Moderate (NEG) Urine Urobilinogen Dipstick 4.0 mg/dL (0.2 mg/dL) Urine Leukocyte Esterase Negative (NEG) Urine RBC 1-2 /HPF (0-2) Urine WBC 1-4 /HPF (0-4) Urine Transitional Epithelial Cells Occ /LPF Urine Amorphous Sediment Present /HPF Urine Bacteria Few /HPF (0-FEW) Urine Hyaline Casts Few /HPF Test 12/05/20 16:16 12/05/20 21:17 12/06/20 07:23 12/06/20 11:36 Glucose (Fingerstick) 194 mg/dL (70-99) 235 mg/dL (70-99) 165 mg/dL (70-99) 175 mg/dL (70-99) Test 12/06/20 16:45 12/06/20 20:50 12/07/20 04:20 12/07/20 07:40 Glucose (Fingerstick) 228 mg/dL (70-99) 227 mg/dL (70-99) 122 mg/dL (70-99) White Blood Count 11.2 x10^3/uL (4.0-11.0) Red Blood Count 4.53 x10^6/uL (4.30-5.70) Hemoglobin 12.2 g/dL (13.0-17.5) Hematocrit 38.1 % (39.0-53.0) Mean Corpuscular Volume 84 fL (79-100) Mean Corpuscular Hemoglobin 27 pg (25-35) Mean Corpuscular Hemoglobin Concent 32 g/dL (31-37) Red Cell Distribution Width 14.7 % (11.5-14.5) Platelet Count 224 x10^3/uL (140-400) Neutrophils (%) (Auto) 86 % (31-73) Lymphocytes (%) (Auto) 8 % (24-48) Monocytes (%) (Auto) 5 % (0-9) Eosinophils (%) (Auto) 0 % (0-3) Basophils (%) (Auto) 0 % (0-3) Neutrophils # (Auto) 9.6 x10^3/uL (1.8-7.7) Lymphocytes # (Auto) 0.9 x10^3/uL (1.0-4.8) Monocytes # (Auto) 0.6 x10^3/uL (0.0-1.1) Eosinophils # (Auto) 0.0 x10^3/uL (0.0-0.7) Basophils # (Auto) 0.0 x10^3/uL (0.0-0.2) Sodium Level 141 mmol/L (136-145) Potassium Level 4.2 mmol/L (3.5-5.1) Chloride Level 106 mmol/L (98-107) Carbon Dioxide Level 28 mmol/L (21-32) Anion Gap 7 (6-14) Blood Urea Nitrogen 24 mg/dL (8-26) Creatinine 1.2 mg/dL (0.7-1.3) Estimated GFR (Cockcroft-Gault) 60.8 Glucose Level 161 mg/dL (70-99) Calcium Level 7.9 mg/dL (8.5-10.1) Laboratory Tests Test 12/06/20 11:36 12/06/20 16:45 12/06/20 20:50 12/07/20 04:20 Glucose (Fingerstick) 175 mg/dL (70-99) 228 mg/dL (70-99) 227 mg/dL (70-99) White Blood Count 11.2 x10^3/uL (4.0-11.0) Red Blood Count 4.53 x10^6/uL (4.30-5.70) Hemoglobin 12.2 g/dL (13.0-17.5) Hematocrit 38.1 % (39.0-53.0) Mean Corpuscular Volume 84 fL (79-100) Mean Corpuscular Hemoglobin 27 pg (25-35) Mean Corpuscular Hemoglobin Concent 32 g/dL (31-37) Red Cell Distribution Width 14.7 % (11.5-14.5) Platelet Count 224 x10^3/uL (140-400) Neutrophils (%) (Auto) 86 % (31-73) Lymphocytes (%) (Auto) 8 % (24-48) Monocytes (%) (Auto) 5 % (0-9) Eosinophils (%) (Auto) 0 % (0-3) Basophils (%) (Auto) 0 % (0-3) Neutrophils # (Auto) 9.6 x10^3/uL (1.8-7.7) Lymphocytes # (Auto) 0.9 x10^3/uL (1.0-4.8) Monocytes # (Auto) 0.6 x10^3/uL (0.0-1.1) Eosinophils # (Auto) 0.0 x10^3/uL (0.0-0.7) Basophils # (Auto) 0.0 x10^3/uL (0.0-0.2) Sodium Level 141 mmol/L (136-145) Potassium Level 4.2 mmol/L (3.5-5.1) Chloride Level 106 mmol/L (98-107) Carbon Dioxide Level 28 mmol/L (21-32) Anion Gap 7 (6-14) Blood Urea Nitrogen 24 mg/dL (8-26) Creatinine 1.2 mg/dL (0.7-1.3) Estimated GFR (Cockcroft-Gault) 60.8 Glucose Level 161 mg/dL (70-99) Calcium Level 7.9 mg/dL (8.5-10.1) Test 12/07/20 07:40 Glucose (Fingerstick) 122 mg/dL (70-99) Medications Active Scripts Medications Dose Route/Sig Max Daily Dose Days Date Category Carvedilol (Carvedilol) 12.5 Mg Tablet 12.5 Mg PO BIDWMEALS 90 03/05/18 Rx Vitamin D (Cholecalciferol (Vitamin D3)) 1,000 Unit Capsule 5,000 Unit PO WEEKLY 03/05/18 Reported Aricept (Donepezil Hcl) 10 Mg Tablet 10 Mg PO HS 03/05/18 Reported Lipitor (Atorvastatin Calcium) 20 Mg Tablet 20 Mg PO HS 03/05/18 Reported Ferrous Sulfate 325 Mg Tablet 325 Mg PO BID 03/05/18 Reported Pantoprazole Sodium (Pantoprazole Sodium) 40 Mg Tablet. 40 Mg PO DAILYAC 30 09/08/16 Rx Aldactone (Spironolactone) 25 Mg Tablet 25 Mg PO DAILY 02/29/16 Rx Lisinopril 20 Mg Tablet 20 Mg PO DAILY 02/29/16 Rx Furosemide 40 Mg Tablet 40 Mg PO DAILY 02/29/16 Rx Clopidogrel (Clopidogrel Bisulfate) 75 Mg Tablet 75 Mg PO DAILYWBKFT 02/29/16 Rx Aspirin Ec (Aspirin) 81 Mg Tablet. 81 Mg PO DAILYWBKFT 02/29/16 Rx Coreg (Carvedilol) 6.25 Mg Tablet 6.25 Mg PO BIDWMEALS 08/11/14 Rx Metformin Hcl 500 Mg Tablet 1 Tab PO BID 04/01/14 Rx Impression . IMPRESSION: 1. Acute hypoxemic respiratory failure, multifactorial. 2. SARS-CoV-2 pneumonia. 3. Non-ST segment elevation myocardial infarction. 4. History of ischemic cardiomyopathy. 5. New-onset atrial fibrillation. 6. Type 2 diabetes. Plan . Updated 12/07 Continue current support Remdesivir Dexamethasone Empiric antibiotics PLAN: 1. We will continue current support with oxygen supplementation. 2. Remdesivir. 3. Empiric antibiotics. 4. Dexamethasone. 5. Follow Cardiology input. 6. Anticoagulation per Cardiology. 7. Continue empiric antibiotics. I do appreciate the privilege in sharing in this patient's care. BHARATH MEEK MD Dec 07, 2020 08:44
[2020-12-07 11:00] VITALS: BP 118/67
--- NOTE | 2020-12-07 11:13 | PDOC ---
[facility] [facility] PROGRESS NOTE Date of Service DOS: DATE: 12/07/20 TIME: 11:05 Chief Complaint Chief Complaint Acute hypoxic respiratory failure secondary to COVID-19 pneumonia Bacteremia HFrEF hypertension CAD Troponinemia Hx CVA Diabetes-Type II Hyperlipidemia Hx AR Hx Seizure Hx TBI History of Present Illness History of Present Illness 12/07 Pt seen and examined Pt up in chair, comfortable Pt reports feeling much improved Satting ~98 on room air Charts reviewed DWRN and SW 12/06 Patient seen and examined at bedside Patient sitting up and bed not in acute distress Satting 96 on 2l by NC Discussed COVID protocol with patient Chart reviewed Discussed case with RN and SW Vitals/I&O Vitals/I&O: Vital Signs Date Time Temp Pulse Resp B/P (MAP) Pulse Ox O2 Delivery O2 Flow Rate FiO2 12/07/20 08:37 71 99/63 12/07/20 08:20 Room Air 12/07/20 07:00 97.9 17 98 2.0 97.9 I & O 12/06/20 12/06/20 12/07/20 15:00 23:00 07:00 Intake Total 320 ml Output Total 151 ml 300 ml Balance -151 ml -300 ml 320 ml Physical Exam General: Alert, Oriented X3, Cooperative Heart: Regular rate, Normal S1, Normal S2 Lungs: Wheezing, Other (Ronchous breath sounds heard in upper airways) Abdomen: Normal bowel sounds, Soft Extremities: No clubbing, No cyanosis Skin: No rashes, No breakdown Labs Labs: Laboratory Tests Test 12/06/20 11:36 12/06/20 16:45 12/06/20 20:50 12/07/20 04:20 Glucose (Fingerstick) 175 mg/dL (70-99) 228 mg/dL (70-99) 227 mg/dL (70-99) White Blood Count 11.2 x10^3/uL (4.0-11.0) Red Blood Count 4.53 x10^6/uL (4.30-5.70) Hemoglobin 12.2 g/dL (13.0-17.5) Hematocrit 38.1 % (39.0-53.0) Mean Corpuscular Volume 84 fL (79-100) Mean Corpuscular Hemoglobin 27 pg (25-35) Mean Corpuscular Hemoglobin Concent 32 g/dL (31-37) Red Cell Distribution Width 14.7 % (11.5-14.5) Platelet Count 224 x10^3/uL (140-400) Neutrophils (%) (Auto) 86 % (31-73) Lymphocytes (%) (Auto) 8 % (24-48) Monocytes (%) (Auto) 5 % (0-9) Eosinophils (%) (Auto) 0 % (0-3) Basophils (%) (Auto) 0 % (0-3) Neutrophils # (Auto) 9.6 x10^3/uL (1.8-7.7) Lymphocytes # (Auto) 0.9 x10^3/uL (1.0-4.8) Monocytes # (Auto) 0.6 x10^3/uL (0.0-1.1) Eosinophils # (Auto) 0.0 x10^3/uL (0.0-0.7) Basophils # (Auto) 0.0 x10^3/uL (0.0-0.2) Sodium Level 141 mmol/L (136-145) Potassium Level 4.2 mmol/L (3.5-5.1) Chloride Level 106 mmol/L (98-107) Carbon Dioxide Level 28 mmol/L (21-32) Anion Gap 7 (6-14) Blood Urea Nitrogen 24 mg/dL (8-26) Creatinine 1.2 mg/dL (0.7-1.3) Estimated GFR (Cockcroft-Gault) 60.8 Glucose Level 161 mg/dL (70-99) Calcium Level 7.9 mg/dL (8.5-10.1) Test 12/07/20 07:40 Glucose (Fingerstick) 122 mg/dL (70-99) Review of Systems Review of Systems: ROS negative Assessment and Plan Assessmemt and Plan Problems Medical Problems: (1) CHF (congestive heart failure) Status: Acute (2) Pneumonia due to COVID-19 virus Status: Acute (3) Tachycardia Status: Acute Acute hypoxic respiratory failure secondary to COVID-19 pneumonia Bacteremia HFrEF hypertension CAD Troponinemia Hx CVA Diabetes-Type II Hyperlipidemia Hx AR Hx Seizure Hx TBI Plan Cardiology and pulmonology input appreciated Continue COVID protocol Continue monitoring on telemetry Serial Enzymes and EKGs Titrate oxygen PRN Continue Multivitamin + minerals Continue Doxycycline Continue Vancomycin per pharmacy DVT prophylaxis PT/OT ordered Disposition Pending Full Code Comment Review of Relevant I have reviewed the following items tramaine (where applicable) has been applied. Medications: Current Medications Medications (Trade) Dose Ordered Sig/Grace Route PRN Reason Start Time Stop Time Status Last Admin Dose Admin Remdesivir 100 mg/ Sodium Chloride 230 ml @ 460 mls/hr Q24H IV 12/06/20 16:00 12/09/20 16:29 12/06/20 16:00 Lactobacillus Rhamnosus (Culturelle) 1 cap BID PO 12/06/20 21:00 12/07/20 08:35 Enoxaparin Sodium (Lovenox 40mg Syringe) 40 mg Q24H SQ 12/06/20 14:00 12/06/20 14:18 Justifications for Admission Other Justification TORREY HAAS III DO Dec 07, 2020 11:13
[2020-12-07 15:00] VITALS: BP 147/79
[2020-12-07] MEDS: ENOXAPARIN 40 MG/0.4 ML SYRINGE. SQ SCH (15:51)
[2020-12-07] MEDS: REMDESIVIR 100mg in NORMAL SALINE 250ML X 4 DAYS IV SCH (15:51)
--- NOTE | 2020-12-07 16:31 | NUR ---
SS following up with discharge planning. SS reviewed pt chart and discussed with pt RN. Pt is currently requiring oxygen at two liters nasal canula. COVID19 positive. Pt on IV Remdesivir, IV Decadron, and IV Zosyn. PT/OT ordered. SS will continue to follow for discharge planning.
[2020-12-07 19:45] VITALS: BP 132/68
[2020-12-07] MEDS: TAMSULOSIN 0.4 MG CAP.ER.24H. PO SCH (21:14)
[2020-12-07] MEDS: DONEPEZIL HCL 10 MG TABLET. PO SCH (21:14)
[2020-12-07] MEDS: ATORVASTATIN CALCIUM 20 MG TABLET PO SCH (21:14)
[2020-12-07] MEDS: INSULIN GLARGINE SYRINGE. SQ SCH (21:16)
[2020-12-07 22:31] VITALS: BP 123/74
[2020-12-08 03:10] VITALS: BP 116/76
[2020-12-08 05:17] LABS: BASO % 0 % (0-3); EOS % 0 % (0-3); HEMATOCRIT 37.9 % (39.0-53.0); HEMOGLOBIN 12.5 g/dL (13.0-17.5); LYMPH # 1.4 x10^3/uL (1.0-4.8); LYMPH % 13 % (24-48); MEAN CORPUSCULAR HEMOGLOBIN 28 pg (25-35); MEAN CORPUSCULAR HGB CONC 33 g/dL (31-37); MEAN CORPUSCULAR VOLUME 84 fL (79-100); MONO # 0.7 x10^3/uL (0.0-1.1); MONO % 7 % (0-9); NEUT # 8.4 x10^3/uL (1.8-7.7); NEUT % 80 % (31-73); PLATELET COUNT 250 x10^3/uL (140-400); RED BLOOD COUNT 4.54 x10^6/uL (4.30-5.70); RED CELL DISTRIBUTION WIDTH 14.7 % (11.5-14.5); WHITE BLOOD COUNT 10.5 x10^3/uL (4.0-11.0)
[2020-12-08] MEDS: PIPERACILLIN/TAZOBACTAM 3.375 GM in IV NORMAL SALINE 50ML 50 ML IV SCH ×3 (06:07→17:13)
[2020-12-08 07:00] VITALS: BP 155/83
[2020-12-08 07:15] LABS: CALCIUM 7.8 mg/dL (8.5-10.1); CREATININE 1.5 mg/dL (0.7-1.3); POTASSIUM 3.4 mmol/L (3.5-5.1)
[2020-12-08] MEDS: ASPIRIN ENTERIC COATED 81 MG TABLET.DR. PO SCH (08:00)
[2020-12-08] MEDS: INSULIN LISPRO 300 UNITS/3 ML VIAL. SQ SCH ×3 (08:00→17:14)
[2020-12-08] MEDS: MULTIVITAMIN with MINERAL TABLET. PO SCH (08:27)
[2020-12-08] MEDS: DOXYCYCLINE HYCLATE 100 MG TABLET PO SCH ×2 (08:28→21:31)
[2020-12-08] MEDS: LACTOBACILLUS RHAMNOSUS GG 1 CAPSULE. PO SCH ×2 (08:28→21:32)
[2020-12-08] MEDS: PANTOPRAZOLE 40 MG TABLET.DR. PO SCH (08:28)
[2020-12-08] MEDS: SENNOSIDES/DOCUSATE 8.6/50MG TABLET. PO SCH ×2 (08:28→21:31)
[2020-12-08] MEDS: CLOPIDOGREL BISULFATE 75 MG TABLET PO SCH (08:28)
[2020-12-08] MEDS: LISINOPRIL 20 MG TABLET PO SCH (08:28)
[2020-12-08] MEDS: FUROSEMIDE 40 MG TABLET. PO SCH (08:28)
[2020-12-08] MEDS: DEXAMETHASONE SOD PHOS 4 MG/ML VIAL IVP SCH (08:29)
[2020-12-08] MEDS: METOPROLOL TART IMMED RELEASE 25 MG TABLET. PO SCH ×2 (08:29→21:32)
[2020-12-08] MEDS: SPIRONOLACTONE 25 MG TABLET PO SCH (08:29)
--- NOTE | 2020-12-08 10:00 | PDOC ---
PULMONARY PROGRESS NOTES DATE: 12/08/20 TIME: 10:00 Subjective Patient not more short of air, no chest pain no pressure, no increasing cough Vitals Vital Signs Date Time Temp Pulse Resp B/P (MAP) Pulse Ox O2 Delivery O2 Flow Rate FiO2 12/08/20 08:29 72 116/76 12/08/20 08:15 Room Air 2.0 12/08/20 07:00 97.3 16 94 97.3 ROS: No Nausea, No Chest Pain, No Abdominal Pain, No Increase Cough General: Alert Lungs: Clear Cardiovascular: S1, S2 Abdomen: Soft, Non-tender Neuro Exam: Alert Extremities: No Edema Skin: Warm Labs Laboratory Tests Test 12/06/20 11:36 12/06/20 16:45 12/06/20 20:50 12/07/20 04:20 Glucose (Fingerstick) 175 mg/dL (70-99) 228 mg/dL (70-99) 227 mg/dL (70-99) White Blood Count 11.2 x10^3/uL (4.0-11.0) Red Blood Count 4.53 x10^6/uL (4.30-5.70) Hemoglobin 12.2 g/dL (13.0-17.5) Hematocrit 38.1 % (39.0-53.0) Mean Corpuscular Volume 84 fL (79-100) Mean Corpuscular Hemoglobin 27 pg (25-35) Mean Corpuscular Hemoglobin Concent 32 g/dL (31-37) Red Cell Distribution Width 14.7 % (11.5-14.5) Platelet Count 224 x10^3/uL (140-400) Neutrophils (%) (Auto) 86 % (31-73) Lymphocytes (%) (Auto) 8 % (24-48) Monocytes (%) (Auto) 5 % (0-9) Eosinophils (%) (Auto) 0 % (0-3) Basophils (%) (Auto) 0 % (0-3) Neutrophils # (Auto) 9.6 x10^3/uL (1.8-7.7) Lymphocytes # (Auto) 0.9 x10^3/uL (1.0-4.8) Monocytes # (Auto) 0.6 x10^3/uL (0.0-1.1) Eosinophils # (Auto) 0.0 x10^3/uL (0.0-0.7) Basophils # (Auto) 0.0 x10^3/uL (0.0-0.2) Sodium Level 141 mmol/L (136-145) Potassium Level 4.2 mmol/L (3.5-5.1) Chloride Level 106 mmol/L (98-107) Carbon Dioxide Level 28 mmol/L (21-32) Anion Gap 7 (6-14) Blood Urea Nitrogen 24 mg/dL (8-26) Creatinine 1.2 mg/dL (0.7-1.3) Estimated GFR (Cockcroft-Gault) 60.8 Glucose Level 161 mg/dL (70-99) Calcium Level 7.9 mg/dL (8.5-10.1) Test 12/07/20 07:40 12/07/20 11:38 12/07/20 17:03 12/07/20 20:50 Glucose (Fingerstick) 122 mg/dL (70-99) 166 mg/dL (70-99) 234 mg/dL (70-99) 190 mg/dL (70-99) Test 12/08/20 04:30 12/08/20 07:47 White Blood Count 10.5 x10^3/uL (4.0-11.0) Red Blood Count 4.54 x10^6/uL (4.30-5.70) Hemoglobin 12.5 g/dL (13.0-17.5) Hematocrit 37.9 % (39.0-53.0) Mean Corpuscular Volume 84 fL (79-100) Mean Corpuscular Hemoglobin 28 pg (25-35) Mean Corpuscular Hemoglobin Concent 33 g/dL (31-37) Red Cell Distribution Width 14.7 % (11.5-14.5) Platelet Count 250 x10^3/uL (140-400) Neutrophils (%) (Auto) 80 % (31-73) Lymphocytes (%) (Auto) 13 % (24-48) Monocytes (%) (Auto) 7 % (0-9) Eosinophils (%) (Auto) 0 % (0-3) Basophils (%) (Auto) 0 % (0-3) Neutrophils # (Auto) 8.4 x10^3/uL (1.8-7.7) Lymphocytes # (Auto) 1.4 x10^3/uL (1.0-4.8) Monocytes # (Auto) 0.7 x10^3/uL (0.0-1.1) Eosinophils # (Auto) 0.0 x10^3/uL (0.0-0.7) Basophils # (Auto) 0.0 x10^3/uL (0.0-0.2) Sodium Level 142 mmol/L (136-145) Potassium Level 3.4 mmol/L (3.5-5.1) Chloride Level 105 mmol/L (98-107) Carbon Dioxide Level 28 mmol/L (21-32) Anion Gap 9 (6-14) Blood Urea Nitrogen 27 mg/dL (8-26) Creatinine 1.5 mg/dL (0.7-1.3) Estimated GFR (Cockcroft-Gault) 47.0 Glucose Level 142 mg/dL (70-99) Calcium Level 7.8 mg/dL (8.5-10.1) Glucose (Fingerstick) 103 mg/dL (70-99) Laboratory Tests Test 12/07/20 11:38 12/07/20 17:03 12/07/20 20:50 12/08/20 04:30 Glucose (Fingerstick) 166 mg/dL (70-99) 234 mg/dL (70-99) 190 mg/dL (70-99) White Blood Count 10.5 x10^3/uL (4.0-11.0) Red Blood Count 4.54 x10^6/uL (4.30-5.70) Hemoglobin 12.5 g/dL (13.0-17.5) Hematocrit 37.9 % (39.0-53.0) Mean Corpuscular Volume 84 fL (79-100) Mean Corpuscular Hemoglobin 28 pg (25-35) Mean Corpuscular Hemoglobin Concent 33 g/dL (31-37) Red Cell Distribution Width 14.7 % (11.5-14.5) Platelet Count 250 x10^3/uL (140-400) Neutrophils (%) (Auto) 80 % (31-73) Lymphocytes (%) (Auto) 13 % (24-48) Monocytes (%) (Auto) 7 % (0-9) Eosinophils (%) (Auto) 0 % (0-3) Basophils (%) (Auto) 0 % (0-3) Neutrophils # (Auto) 8.4 x10^3/uL (1.8-7.7) Lymphocytes # (Auto) 1.4 x10^3/uL (1.0-4.8) Monocytes # (Auto) 0.7 x10^3/uL (0.0-1.1) Eosinophils # (Auto) 0.0 x10^3/uL (0.0-0.7) Basophils # (Auto) 0.0 x10^3/uL (0.0-0.2) Sodium Level 142 mmol/L (136-145) Potassium Level 3.4 mmol/L (3.5-5.1) Chloride Level 105 mmol/L (98-107) Carbon Dioxide Level 28 mmol/L (21-32) Anion Gap 9 (6-14) Blood Urea Nitrogen 27 mg/dL (8-26) Creatinine 1.5 mg/dL (0.7-1.3) Estimated GFR (Cockcroft-Gault) 47.0 Glucose Level 142 mg/dL (70-99) Calcium Level 7.8 mg/dL (8.5-10.1) Test 12/08/20 07:47 Glucose (Fingerstick) 103 mg/dL (70-99) Medications Active Scripts Medications Dose Route/Sig Max Daily Dose Days Date Category Carvedilol (Carvedilol) 12.5 Mg Tablet 12.5 Mg PO BIDWMEALS 90 03/05/18 Rx Vitamin D (Cholecalciferol (Vitamin D3)) 1,000 Unit Capsule 5,000 Unit PO WEEKLY 03/05/18 Reported Aricept (Donepezil Hcl) 10 Mg Tablet 10 Mg PO HS 03/05/18 Reported Lipitor (Atorvastatin Calcium) 20 Mg Tablet 20 Mg PO HS 03/05/18 Reported Ferrous Sulfate 325 Mg Tablet 325 Mg PO BID 03/05/18 Reported Pantoprazole Sodium (Pantoprazole Sodium) 40 Mg Tablet.dr 40 Mg PO DAILYAC 30 09/08/16 Rx Aldactone (Spironolactone) 25 Mg Tablet 25 Mg PO DAILY 02/29/16 Rx Lisinopril 20 Mg Tablet 20 Mg PO DAILY 02/29/16 Rx Furosemide 40 Mg Tablet 40 Mg PO DAILY 02/29/16 Rx Clopidogrel (Clopidogrel Bisulfate) 75 Mg Tablet 75 Mg PO DAILYWBKFT 02/29/16 Rx Aspirin Ec (Aspirin) 81 Mg Tablet. 81 Mg PO DAILYWBKFT 02/29/16 Rx Coreg (Carvedilol) 6.25 Mg Tablet 6.25 Mg PO BIDWMEALS 08/11/14 Rx Metformin Hcl 500 Mg Tablet 1 Tab PO BID 04/01/14 Rx Impression . IMPRESSION: 1. Acute hypoxemic respiratory failure, multifactorial. 2. SARS-CoV-2 pneumonia. 3. Non-ST segment elevation myocardial infarction. 4. History of ischemic cardiomyopathy. 5. New-onset atrial fibrillation. 6. Type 2 diabetes. 7. Bacteremia, contamination. Plan . Updated 12/08 Continue current support Possible discharge 24 to 48 hours 6-minute walk in the a.m. Updated 12/07 Continue current support Remdesivir Dexamethasone Empiric antibiotics BHARATH MEEK MD Dec 08, 2020 10:00
[2020-12-08 11:00] VITALS: BP 131/78
--- NOTE | 2020-12-08 11:36 | PDOC ---
[facility] [facility] PROGRESS NOTE Date of Service DOS: DATE: 12/08/20 TIME: 11:34 Chief Complaint Chief Complaint Acute hypoxic respiratory failure secondary to COVID-19 pneumonia Bacteremia hypertension CAD Troponinemia Hx CVA Diabetes-Type II Hyperlipidemia Hx UT Hx Seizure Hx TBI History of Present Illness History of Present Illness 12/08 Patient seen and examined at bedside Pt up in chair, resting comfortably Pt reports feeling better, less SOA satting ~99 on 2L by NC Discussed plan of care with patient Chart reviewed Discussed case with RN and SW 12/07 Pt seen and examined Pt up in chair, comfortable Pt reports feeling much improved Satting ~98 on room air Charts reviewed DWRN and JACOB 12/06 Patient seen and examined at bedside Patient sitting up and bed not in acute distress Satting 96 on 2l by NC Discussed COVID protocol with patient Chart reviewed Discussed case with RN and JACOB Vitals/I&O Vitals/I&O: Vital Signs Date Time Temp Pulse Resp B/P (MAP) Pulse Ox O2 Delivery O2 Flow Rate FiO2 12/08/20 11:00 97.6 73 16 131/78 (95) 98 Nasal Cannula 2.0 97.6 I & O 12/07/20 12/07/20 12/08/20 15:00 23:00 07:00 Intake Total 600 ml 420 ml 220 ml Output Total 250 ml Balance 600 ml 170 ml 220 ml Physical Exam General: Alert, Oriented X3, Cooperative Heart: Regular rate, Normal S1, Normal S2 Lungs: Clear Abdomen: Normal bowel sounds, Soft Extremities: No clubbing, No cyanosis Skin: No rashes, No breakdown Labs Labs: Laboratory Tests Test 12/07/20 11:38 12/07/20 17:03 12/07/20 20:50 12/08/20 04:30 Glucose (Fingerstick) 166 mg/dL (70-99) 234 mg/dL (70-99) 190 mg/dL (70-99) White Blood Count 10.5 x10^3/uL (4.0-11.0) Red Blood Count 4.54 x10^6/uL (4.30-5.70) Hemoglobin 12.5 g/dL (13.0-17.5) Hematocrit 37.9 % (39.0-53.0) Mean Corpuscular Volume 84 fL (79-100) Mean Corpuscular Hemoglobin 28 pg (25-35) Mean Corpuscular Hemoglobin Concent 33 g/dL (31-37) Red Cell Distribution Width 14.7 % (11.5-14.5) Platelet Count 250 x10^3/uL (140-400) Neutrophils (%) (Auto) 80 % (31-73) Lymphocytes (%) (Auto) 13 % (24-48) Monocytes (%) (Auto) 7 % (0-9) Eosinophils (%) (Auto) 0 % (0-3) Basophils (%) (Auto) 0 % (0-3) Neutrophils # (Auto) 8.4 x10^3/uL (1.8-7.7) Lymphocytes # (Auto) 1.4 x10^3/uL (1.0-4.8) Monocytes # (Auto) 0.7 x10^3/uL (0.0-1.1) Eosinophils # (Auto) 0.0 x10^3/uL (0.0-0.7) Basophils # (Auto) 0.0 x10^3/uL (0.0-0.2) Sodium Level 142 mmol/L (136-145) Potassium Level 3.4 mmol/L (3.5-5.1) Chloride Level 105 mmol/L (98-107) Carbon Dioxide Level 28 mmol/L (21-32) Anion Gap 9 (6-14) Blood Urea Nitrogen 27 mg/dL (8-26) Creatinine 1.5 mg/dL (0.7-1.3) Estimated GFR (Cockcroft-Gault) 47.0 Glucose Level 142 mg/dL (70-99) Calcium Level 7.8 mg/dL (8.5-10.1) Test 12/08/20 07:47 Glucose (Fingerstick) 103 mg/dL (70-99) Review of Systems Review of Systems: ROS otherwise negative Assessment and Plan Assessmemt and Plan Problems Medical Problems: (1) CHF (congestive heart failure) Status: Acute (2) Pneumonia due to COVID-19 virus Status: Acute (3) Tachycardia Status: Acute Acute hypoxic respiratory failure secondary to COVID-19 pneumonia Bacteremia hypertension CAD Troponinemia Hx CVA Diabetes-Type II Hyperlipidemia Hx UT Hx Seizure Hx TBI Plan Cardiology and pulmonology input appreciated Continue COVID protocol (he is finishing 1 more day of remdesivir today) O2 per nasal cannula Continue Multivitamin + minerals Continue Doxycycline Continue Vancomycin per pharmacy DVT prophylaxis PT/OT ordered Cardiac monitoring Discharge disposition pending (clinically pt stable and improving, could consider discharge tomorrow per cardio and pulm approval) Full Code Comment Review of Relevant I have reviewed the following items tramaine (where applicable) has been applied. Justifications for Admission Other Justification TORREY HAAS III DO Dec 08, 2020 11:36
[2020-12-08 15:00] VITALS: BP 135/72
--- NOTE | 2020-12-08 15:06 | NUR ---
SS following up with discharge planning. SS reviewed pt chart and discussed with pt RN. Pt is currently requiring oxygen at two liters nasal canula. COVID19 positive. Pt has no home oxygen. Pt on IV Remdesivir and PO Doxycycline. PT/OT recommended home with home healthcare. Pt has no preference of company. Referral sent to [facility], ; fax [phone]. SS will continue to follow for discharge planning. Addendum: 12/08/20 at 1511 by ARASELI MCKAY SS Pt also on IV Decadron and IV Zosyn.
[2020-12-08] MEDS: ENOXAPARIN 40 MG/0.4 ML SYRINGE. SQ SCH (16:05)
[2020-12-08] MEDS: REMDESIVIR 100mg in NORMAL SALINE 250ML X 4 DAYS IV SCH (16:05)
[2020-12-08 19:59] VITALS: BP 130/72
[2020-12-08] MEDS: DONEPEZIL HCL 10 MG TABLET. PO SCH (21:31)
[2020-12-08] MEDS: TAMSULOSIN 0.4 MG CAP.ER.24H. PO SCH (21:32)
[2020-12-08] MEDS: ATORVASTATIN CALCIUM 20 MG TABLET PO SCH (21:32)
[2020-12-08] MEDS: INSULIN GLARGINE SYRINGE. SQ SCH (21:35)
[2020-12-08 22:58] VITALS: BP 142/81
[2020-12-09 03:08] VITALS: BP 139/77
[2020-12-09] MEDS: PIPERACILLIN/TAZOBACTAM 3.375 GM in IV NORMAL SALINE 50ML 50 ML IV SCH ×4 (05:43→17:02)
[2020-12-09 07:00] VITALS: BP 159/72
[2020-12-09] MEDS: INSULIN LISPRO 300 UNITS/3 ML VIAL. SQ SCH ×3 (08:00→17:00)
--- NOTE | 2020-12-09 08:10 | RAD ---
EXAM: Chest, single view. HISTORY: Infiltrate. COMPARISON: 12/05/2020 FINDINGS: A frontal view of the chest is obtained. There is stable mixed diffuse interstitial and emilia eolar infiltrate. There is stable small pleural effusions. There is no pneumothorax. There is a stabl e prominent cardiac silhouette and evidence of prior CABG. IMPRESSION: Stable diffuse mixed interstitial and alveolar infiltrate with suspected small pleural ef fusions. Electronically signed by: Marni Douglas MD (12/09/2020 8:08 AM) [id number]
[2020-12-09 08:23] LABS: BASO % 0 % (0-3); EOS # 0.1 x10^3/uL (0.0-0.7); EOS % 1 % (0-3); HEMATOCRIT 38.8 % (39.0-53.0); HEMOGLOBIN 12.6 g/dL (13.0-17.5); LYMPH # 1.8 x10^3/uL (1.0-4.8); LYMPH % 17 % (24-48); MEAN CORPUSCULAR HEMOGLOBIN 27 pg (25-35); MEAN CORPUSCULAR HGB CONC 32 g/dL (31-37); MEAN CORPUSCULAR VOLUME 84 fL (79-100); MONO # 0.7 x10^3/uL (0.0-1.1); MONO % 7 % (0-9); NEUT # 7.8 x10^3/uL (1.8-7.7); NEUT % 75 % (31-73); PLATELET COUNT 285 x10^3/uL (140-400); RED BLOOD COUNT 4.62 x10^6/uL (4.30-5.70); RED CELL DISTRIBUTION WIDTH 14.6 % (11.5-14.5); WHITE BLOOD COUNT 10.4 x10^3/uL (4.0-11.0)
[2020-12-09 08:41] LABS: CALCIUM 7.9 mg/dL (8.5-10.1); CREATININE 1.2 mg/dL (0.7-1.3); GFR 60.8; POTASSIUM 3.3 mmol/L (3.5-5.1)
[2020-12-09] MEDS: CLOPIDOGREL BISULFATE 75 MG TABLET PO SCH (09:25)
[2020-12-09] MEDS: PANTOPRAZOLE 40 MG TABLET.DR. PO SCH (09:25)
[2020-12-09] MEDS: DOXYCYCLINE HYCLATE 100 MG TABLET PO SCH (09:25)
[2020-12-09] MEDS: SENNOSIDES/DOCUSATE 8.6/50MG TABLET. PO SCH (09:25)
[2020-12-09] MEDS: ASPIRIN ENTERIC COATED 81 MG TABLET.DR. PO SCH (09:26)
[2020-12-09] MEDS: LACTOBACILLUS RHAMNOSUS GG 1 CAPSULE. PO SCH (09:26)
[2020-12-09] MEDS: FUROSEMIDE 40 MG TABLET. PO SCH (09:26)
[2020-12-09] MEDS: LISINOPRIL 20 MG TABLET PO SCH (09:26)
[2020-12-09] MEDS: SPIRONOLACTONE 25 MG TABLET PO SCH (09:26)
[2020-12-09] MEDS: MULTIVITAMIN with MINERAL TABLET. PO SCH (09:26)
--- NOTE | 2020-12-09 09:26 | PDOC ---
PULMONARY PROGRESS NOTES DATE: 12/09/20 TIME: 09:26 Subjective Patient ready to discharge, no new symptoms, no chest pain pressure Vitals Vital Signs Date Time Temp Pulse Resp B/P (MAP) Pulse Ox O2 Delivery O2 Flow Rate FiO2 12/09/20 03:08 97.6 58 18 139/77 (97) 96 Room Air 97.6 12/08/20 22:58 2.0 ROS: No Nausea, No Chest Pain, No Abdominal Pain, No Increase Cough General: Alert Lungs: Clear Cardiovascular: S1, S2 Abdomen: Soft, Non-tender Neuro Exam: Alert Extremities: No Edema Skin: Warm Labs Laboratory Tests Test 12/07/20 11:38 12/07/20 17:03 12/07/20 20:50 12/08/20 04:30 Glucose (Fingerstick) 166 mg/dL (70-99) 234 mg/dL (70-99) 190 mg/dL (70-99) White Blood Count 10.5 x10^3/uL (4.0-11.0) Red Blood Count 4.54 x10^6/uL (4.30-5.70) Hemoglobin 12.5 g/dL (13.0-17.5) Hematocrit 37.9 % (39.0-53.0) Mean Corpuscular Volume 84 fL (79-100) Mean Corpuscular Hemoglobin 28 pg (25-35) Mean Corpuscular Hemoglobin Concent 33 g/dL (31-37) Red Cell Distribution Width 14.7 % (11.5-14.5) Platelet Count 250 x10^3/uL (140-400) Neutrophils (%) (Auto) 80 % (31-73) Lymphocytes (%) (Auto) 13 % (24-48) Monocytes (%) (Auto) 7 % (0-9) Eosinophils (%) (Auto) 0 % (0-3) Basophils (%) (Auto) 0 % (0-3) Neutrophils # (Auto) 8.4 x10^3/uL (1.8-7.7) Lymphocytes # (Auto) 1.4 x10^3/uL (1.0-4.8) Monocytes # (Auto) 0.7 x10^3/uL (0.0-1.1) Eosinophils # (Auto) 0.0 x10^3/uL (0.0-0.7) Basophils # (Auto) 0.0 x10^3/uL (0.0-0.2) Sodium Level 142 mmol/L (136-145) Potassium Level 3.4 mmol/L (3.5-5.1) Chloride Level 105 mmol/L (98-107) Carbon Dioxide Level 28 mmol/L (21-32) Anion Gap 9 (6-14) Blood Urea Nitrogen 27 mg/dL (8-26) Creatinine 1.5 mg/dL (0.7-1.3) Estimated GFR (Cockcroft-Gault) 47.0 Glucose Level 142 mg/dL (70-99) Calcium Level 7.8 mg/dL (8.5-10.1) Test 12/08/20 07:47 12/08/20 11:41 12/08/20 16:56 12/08/20 20:22 Glucose (Fingerstick) 103 mg/dL (70-99) 183 mg/dL (70-99) 302 mg/dL (70-99) 242 mg/dL (70-99) Test 12/09/20 07:15 12/09/20 08:24 White Blood Count 10.4 x10^3/uL (4.0-11.0) Red Blood Count 4.62 x10^6/uL (4.30-5.70) Hemoglobin 12.6 g/dL (13.0-17.5) Hematocrit 38.8 % (39.0-53.0) Mean Corpuscular Volume 84 fL (79-100) Mean Corpuscular Hemoglobin 27 pg (25-35) Mean Corpuscular Hemoglobin Concent 32 g/dL (31-37) Red Cell Distribution Width 14.6 % (11.5-14.5) Platelet Count 285 x10^3/uL (140-400) Neutrophils (%) (Auto) 75 % (31-73) Lymphocytes (%) (Auto) 17 % (24-48) Monocytes (%) (Auto) 7 % (0-9) Eosinophils (%) (Auto) 1 % (0-3) Basophils (%) (Auto) 0 % (0-3) Neutrophils # (Auto) 7.8 x10^3/uL (1.8-7.7) Lymphocytes # (Auto) 1.8 x10^3/uL (1.0-4.8) Monocytes # (Auto) 0.7 x10^3/uL (0.0-1.1) Eosinophils # (Auto) 0.1 x10^3/uL (0.0-0.7) Basophils # (Auto) 0.0 x10^3/uL (0.0-0.2) Sodium Level 140 mmol/L (136-145) Potassium Level 3.3 mmol/L (3.5-5.1) Chloride Level 104 mmol/L (98-107) Carbon Dioxide Level 27 mmol/L (21-32) Anion Gap 9 (6-14) Blood Urea Nitrogen 25 mg/dL (8-26) Creatinine 1.2 mg/dL (0.7-1.3) Estimated GFR (Cockcroft-Gault) 60.8 Glucose Level 83 mg/dL (70-99) Calcium Level 7.9 mg/dL (8.5-10.1) Glucose (Fingerstick) 87 mg/dL (70-99) Laboratory Tests Test 12/08/20 11:41 12/08/20 16:56 12/08/20 20:22 12/09/20 07:15 Glucose (Fingerstick) 183 mg/dL (70-99) 302 mg/dL (70-99) 242 mg/dL (70-99) White Blood Count 10.4 x10^3/uL (4.0-11.0) Red Blood Count 4.62 x10^6/uL (4.30-5.70) Hemoglobin 12.6 g/dL (13.0-17.5) Hematocrit 38.8 % (39.0-53.0) Mean Corpuscular Volume 84 fL (79-100) Mean Corpuscular Hemoglobin 27 pg (25-35) Mean Corpuscular Hemoglobin Concent 32 g/dL (31-37) Red Cell Distribution Width 14.6 % (11.5-14.5) Platelet Count 285 x10^3/uL (140-400) Neutrophils (%) (Auto) 75 % (31-73) Lymphocytes (%) (Auto) 17 % (24-48) Monocytes (%) (Auto) 7 % (0-9) Eosinophils (%) (Auto) 1 % (0-3) Basophils (%) (Auto) 0 % (0-3) Neutrophils # (Auto) 7.8 x10^3/uL (1.8-7.7) Lymphocytes # (Auto) 1.8 x10^3/uL (1.0-4.8) Monocytes # (Auto) 0.7 x10^3/uL (0.0-1.1) Eosinophils # (Auto) 0.1 x10^3/uL (0.0-0.7) Basophils # (Auto) 0.0 x10^3/uL (0.0-0.2) Sodium Level 140 mmol/L (136-145) Potassium Level 3.3 mmol/L (3.5-5.1) Chloride Level 104 mmol/L (98-107) Carbon Dioxide Level 27 mmol/L (21-32) Anion Gap 9 (6-14) Blood Urea Nitrogen 25 mg/dL (8-26) Creatinine 1.2 mg/dL (0.7-1.3) Estimated GFR (Cockcroft-Gault) 60.8 Glucose Level 83 mg/dL (70-99) Calcium Level 7.9 mg/dL (8.5-10.1) Test 12/09/20 08:24 Glucose (Fingerstick) 87 mg/dL (70-99) Medications Active Scripts Medications Dose Route/Sig Max Daily Dose Days Date Category Carvedilol (Carvedilol) 12.5 Mg Tablet 12.5 Mg PO BIDWMEALS 90 03/05/18 Rx Vitamin D (Cholecalciferol (Vitamin D3)) 1,000 Unit Capsule 5,000 Unit PO WEEKLY 03/05/18 Reported Aricept (Donepezil Hcl) 10 Mg Tablet 10 Mg PO HS 03/05/18 Reported Lipitor (Atorvastatin Calcium) 20 Mg Tablet 20 Mg PO HS 03/05/18 Reported Ferrous Sulfate 325 Mg Tablet 325 Mg PO BID 03/05/18 Reported Pantoprazole Sodium (Pantoprazole Sodium) 40 Mg Tablet.dr 40 Mg PO DAILYAC 30 09/08/16 Rx Aldactone (Spironolactone) 25 Mg Tablet 25 Mg PO DAILY 02/29/16 Rx Lisinopril 20 Mg Tablet 20 Mg PO DAILY 02/29/16 Rx Furosemide 40 Mg Tablet 40 Mg PO DAILY 02/29/16 Rx Clopidogrel (Clopidogrel Bisulfate) 75 Mg Tablet 75 Mg PO DAILYWBKFT 02/29/16 Rx Aspirin Ec (Aspirin) 81 Mg Tablet. 81 Mg PO DAILYWBKFT 02/29/16 Rx Coreg (Carvedilol) 6.25 Mg Tablet 6.25 Mg PO BIDWMEALS 08/11/14 Rx Metformin Hcl 500 Mg Tablet 1 Tab PO BID 04/01/14 Rx Impression . IMPRESSION: 1. Acute hypoxemic respiratory failure, multifactorial. 2. SARS-CoV-2 pneumonia. 3. Non-ST segment elevation myocardial infarction. 4. History of ischemic cardiomyopathy. 5. New-onset atrial fibrillation. 6. Type 2 diabetes. 7. Bacteremia, contamination. Plan . Updated 12/[address] Guerrero 6-minute walk Discussed with RT updated 12/08 Continue current support Possible discharge 24 to 48 hours 6-minute walk in the a.m. Updated 12/07 Continue current support Remdesivir Dexamethasone Empiric antibiotics BHARATH MEEK MD Dec 09, 2020 09:26
[2020-12-09] MEDS: DEXAMETHASONE SOD PHOS 4 MG/ML VIAL IVP SCH (09:28)
[2020-12-09] MEDS: METOPROLOL TART IMMED RELEASE 25 MG TABLET. PO SCH (09:30)
[2020-12-09] MEDS ORDERED: POTASSIUM CHLORIDE 20 MEQ TABLET.ER. PO ONE (09:45)
--- NOTE | 2020-12-09 10:47 | NUR ---
SS following up with discharge planning. SS reviewed pt chart and discussed with pt RN. Pt is currently requiring oxygen at two liters nasal canula. COVID19 positive. Six minute walk ordered to assess oxygen needs. Pt on IV Remdesivir, IV Zosyn, PO Doxycycline, and IV Decadron. PT recommended home with assistance. Pt accepted on services with [facility], ; fax [phone]. SS will continue to follow for discharge planning.
[2020-12-09] MEDS ORDERED: TAMS0.4C97 PO (10:49)
[2020-12-09] MEDS ORDERED: PRED-220 PO (10:54)
[2020-12-09] MEDS ORDERED: DOXY100T PO (10:54)
[2020-12-09 11:00] VITALS: BP 168/85
--- NOTE | 2020-12-09 11:00 | PDOC3 ---
Discharge Summary Visit Information Date of Admission: Dec 05, 2020 Date of Discharge: Dec 09, 2020 Final Diagnosis 1. Acute hypoxemic respiratory failure, 2. Sepsis 3. SARS-CoV-2 pneumonia. 5. Demand ischemic, TYpe 2 myocardial infarction. 6 History of ischemic cardiomyopathy. 7. acute diastolic CHF from transient atrial fibrillation. 8 Type 2 diabetes. 9, obese, BMI 33 Problems Medical Problems: (1) CHF (congestive heart failure) Status: Acute (2) Pneumonia due to COVID-19 virus Status: Acute (3) Tachycardia Status: Acute Brief Hospital Course Allergies Allergies Coded Allergies Type Severity Reaction Last Updated Verified No Known Drug Allergies 09/07/16 No Vital Signs Vital Signs Date Time Temp Pulse Resp B/P (MAP) Pulse Ox O2 Delivery O2 Flow Rate FiO2 12/09/20 09:30 73 139/77 12/09/20 08:00 Nasal Cannula 2.0 12/09/20 07:00 97.4 16 100 97.4 Lab Results Laboratory Tests Test 12/07/20 11:38 12/07/20 17:03 12/07/20 20:50 12/08/20 04:30 Glucose (Fingerstick) 166 mg/dL (70-99) 234 mg/dL (70-99) 190 mg/dL (70-99) White Blood Count 10.5 x10^3/uL (4.0-11.0) Red Blood Count 4.54 x10^6/uL (4.30-5.70) Hemoglobin 12.5 g/dL (13.0-17.5) Hematocrit 37.9 % (39.0-53.0) Mean Corpuscular Volume 84 fL (79-100) Mean Corpuscular Hemoglobin 28 pg (25-35) Mean Corpuscular Hemoglobin Concent 33 g/dL (31-37) Red Cell Distribution Width 14.7 % (11.5-14.5) Platelet Count 250 x10^3/uL (140-400) Neutrophils (%) (Auto) 80 % (31-73) Lymphocytes (%) (Auto) 13 % (24-48) Monocytes (%) (Auto) 7 % (0-9) Eosinophils (%) (Auto) 0 % (0-3) Basophils (%) (Auto) 0 % (0-3) Neutrophils # (Auto) 8.4 x10^3/uL (1.8-7.7) Lymphocytes # (Auto) 1.4 x10^3/uL (1.0-4.8) Monocytes # (Auto) 0.7 x10^3/uL (0.0-1.1) Eosinophils # (Auto) 0.0 x10^3/uL (0.0-0.7) Basophils # (Auto) 0.0 x10^3/uL (0.0-0.2) Sodium Level 142 mmol/L (136-145) Potassium Level 3.4 mmol/L (3.5-5.1) Chloride Level 105 mmol/L (98-107) Carbon Dioxide Level 28 mmol/L (21-32) Anion Gap 9 (6-14) Blood Urea Nitrogen 27 mg/dL (8-26) Creatinine 1.5 mg/dL (0.7-1.3) Estimated GFR (Cockcroft-Gault) 47.0 Glucose Level 142 mg/dL (70-99) Calcium Level 7.8 mg/dL (8.5-10.1) Test 12/08/20 07:47 12/08/20 11:41 12/08/20 16:56 12/08/20 20:22 Glucose (Fingerstick) 103 mg/dL (70-99) 183 mg/dL (70-99) 302 mg/dL (70-99) 242 mg/dL (70-99) Test 12/09/20 07:15 12/09/20 08:24 White Blood Count 10.4 x10^3/uL (4.0-11.0) Red Blood Count 4.62 x10^6/uL (4.30-5.70) Hemoglobin 12.6 g/dL (13.0-17.5) Hematocrit 38.8 % (39.0-53.0) Mean Corpuscular Volume 84 fL (79-100) Mean Corpuscular Hemoglobin 27 pg (25-35) Mean Corpuscular Hemoglobin Concent 32 g/dL (31-37) Red Cell Distribution Width 14.6 % (11.5-14.5) Platelet Count 285 x10^3/uL (140-400) Neutrophils (%) (Auto) 75 % (31-73) Lymphocytes (%) (Auto) 17 % (24-48) Monocytes (%) (Auto) 7 % (0-9) Eosinophils (%) (Auto) 1 % (0-3) Basophils (%) (Auto) 0 % (0-3) Neutrophils # (Auto) 7.8 x10^3/uL (1.8-7.7) Lymphocytes # (Auto) 1.8 x10^3/uL (1.0-4.8) Monocytes # (Auto) 0.7 x10^3/uL (0.0-1.1) Eosinophils # (Auto) 0.1 x10^3/uL (0.0-0.7) Basophils # (Auto) 0.0 x10^3/uL (0.0-0.2) Sodium Level 140 mmol/L (136-145) Potassium Level 3.3 mmol/L (3.5-5.1) Chloride Level 104 mmol/L (98-107) Carbon Dioxide Level 27 mmol/L (21-32) Anion Gap 9 (6-14) Blood Urea Nitrogen 25 mg/dL (8-26) Creatinine 1.2 mg/dL (0.7-1.3) Estimated GFR (Cockcroft-Gault) 60.8 Glucose Level 83 mg/dL (70-99) Calcium Level 7.9 mg/dL (8.5-10.1) Glucose (Fingerstick) 87 mg/dL (70-99) Laboratory Tests Test 12/08/20 11:41 12/08/20 16:56 12/08/20 20:22 12/09/20 07:15 Glucose (Fingerstick) 183 mg/dL (70-99) 302 mg/dL (70-99) 242 mg/dL (70-99) White Blood Count 10.4 x10^3/uL (4.0-11.0) Red Blood Count 4.62 x10^6/uL (4.30-5.70) Hemoglobin 12.6 g/dL (13.0-17.5) Hematocrit 38.8 % (39.0-53.0) Mean Corpuscular Volume 84 fL (79-100) Mean Corpuscular Hemoglobin 27 pg (25-35) Mean Corpuscular Hemoglobin Concent 32 g/dL (31-37) Red Cell Distribution Width 14.6 % (11.5-14.5) Platelet Count 285 x10^3/uL (140-400) Neutrophils (%) (Auto) 75 % (31-73) Lymphocytes (%) (Auto) 17 % (24-48) Monocytes (%) (Auto) 7 % (0-9) Eosinophils (%) (Auto) 1 % (0-3) Basophils (%) (Auto) 0 % (0-3) Neutrophils # (Auto) 7.8 x10^3/uL (1.8-7.7) Lymphocytes # (Auto) 1.8 x10^3/uL (1.0-4.8) Monocytes # (Auto) 0.7 x10^3/uL (0.0-1.1) Eosinophils # (Auto) 0.1 x10^3/uL (0.0-0.7) Basophils # (Auto) 0.0 x10^3/uL (0.0-0.2) Sodium Level 140 mmol/L (136-145) Potassium Level 3.3 mmol/L (3.5-5.1) Chloride Level 104 mmol/L (98-107) Carbon Dioxide Level 27 mmol/L (21-32) Anion Gap 9 (6-14) Blood Urea Nitrogen 25 mg/dL (8-26) Creatinine 1.2 mg/dL (0.7-1.3) Estimated GFR (Cockcroft-Gault) 60.8 Glucose Level 83 mg/dL (70-99) Calcium Level 7.9 mg/dL (8.5-10.1) Test 12/09/20 08:24 Glucose (Fingerstick) 87 mg/dL (70-99) Brief Hospital Course Mr. Hernandes is a 65-year-old male who presented with shortness of breath and cough. Noted positive SARS-CoV-2 testing. He also had an elevated troponin level. He has been seen by Cardiology. I was asked to see him in consultation. I reviewed his chest x-ray, which revealed bilateral hazy infiltrates. Since last evening, the patient states he now feels better. He is on oxygen supplementation. He was given antibiotic, antiviral and dexamethasone. In addition, he was started on low-dose beta yared, he now feels better. Discharge Information Condition at Discharge: Improved Follow Up: Weeks Disposition/Orders: D/C to Home w/ HH Scheduled Aspirin (Aspirin Ec) 81 Mg Tablet., 81 MG PO DAILYWBKFT, #90 Prescribed by: VENKAT GRIJALVA on 02/29/16 1306 Last Action: Continued on 12/05/20 135 by KALANI BROTHERS MD Atorvastatin Calcium (Lipitor) 20 Mg Tablet, 20 MG PO HS for FOR CHOLESTEROL, #30 Ref 0 (Reported) Entered as Reported by: GUALBERTO BRIZUELA on 03/05/18 1314 Last Action: Continued on 12/05/20 135 by KALANI BROTHERS MD Carvedilol (Carvedilol ) 12.5 Mg Tablet, 12.5 MG PO BIDWMEALS for HTN for 90 Days, #180 Ref 4 Prescribed by: VENKAT GRIJALVA on 03/05/18 1609 Last Action: Continued on 12/05/201357 by KALANI BROTHERS MD Cholecalciferol (Vitamin D3) (Vitamin D) 1,000 Unit Capsule, 5,000 UNIT PO WEEKLY for supplement, (Reported) Entered as Reported by: GUALBERTO BRIZUELA on 03/05/18 1314 Last Action: HELD on 12/05/201357 by KALANI BROTHERS MD Clopidogrel Bisulfate (Clopidogrel) 75 Mg Tablet, 75 MG PO DAILYWBKFT, #30 Prescribed by: VENKAT GRIJALVA on 02/29/16 1306 Last Action: Continued on 12/05/201357 by KALANI BROTHERS MD Donepezil Hcl (Aricept) 10 Mg Tablet, 10 MG PO HS for memory, (Reported) Entered as Reported by: GUALBERTO BRIZUELA on 03/05/18 1314 Last Action: Continued on 12/05/201357 by KALANI BROTHERS MD Doxycycline Hyclate (Doxycycline Hyclate) 100 Mg Tablet, 100 MG PO BID for pneumonia, #10 Prescribed by: JAKE LUNDBERG on 12/09/20 1054 Ferrous Sulfate (Ferrous Sulfate) 325 Mg Tablet, 325 MG PO BID for supplement, (Reported) Entered as Reported by: GUALBERTO BRIZUELA on 03/05/18 0939 Last Action: HELD on 12/05/20 1358 by KALANI BROTHERS MD Furosemide (Furosemide) 40 Mg Tablet, 40 MG PO DAILY, #90 Ref 4 Prescribed by: VENKAT GRIJALVA on 02/29/16 1306 Last Action: Continued on 12/05/201357 by KALANI BROTHERS MD Lisinopril (Lisinopril) 20 Mg Tablet, 20 MG PO DAILY, #90 Ref 6 Prescribed by: VENKAT GRIJALVA on 02/29/16 1306 Last Action: Continued on 12/05/201357 by KALANI BROTHERS MD Metformin Hcl (Metformin Hcl) 500 Mg Tablet, 1 TAB PO BID, #60 Ref 3 Prescribed by: JENNIFER GARNER on 04/01/14 1202 Last Action: HELD on 12/05/201357 by KALANI BROTHERS MD Pantoprazole Sodium (Pantoprazole Sodium ) 40 Mg Tablet.dr, 40 MG PO DAILYAC for 30 Days, #30 Prescribed by: ROHIT CLARKE on 09/08/16 0845 Last Action: Continued on 12/05/201357 by KALANI BROTHERS MD Prednisone (Prednisone ) 10 Mg Tablet, 10 MG PO UD for COVID, #30 Ref 0 Take 5 tablets by mouth daily for 2 days, then take 4 tablets by mouth daily for 2 days, then take 3 tablets by mouth daily for 2 days, then take 2 tablets by mouth daily for 2 days, then take 1 tablets by mouth daily for 2 days, then stop. Prescribed by: JAKE LUNDBERG on 12/09/20 1054 Spironolactone (Aldactone) 25 Mg Tablet, 25 MG PO DAILY, #90 Ref 4 Prescribed by: VENKAT GRIJALVA on 02/29/161305 Last Action: Continued on 12/05/201357 by KALANI BROTHERS MD Tamsulosin Hcl (Flomax) 0.4 Mg Cap.er.24h, 0.4 MG PO QHS for urinary retention, #30 Prescribed by: JAKE LUNDBERG on 12/09/20 1049 Discontinued Medications Carvedilol (Coreg ) 6.25 Mg Tablet, 6.25 MG PO BIDWMEALS, #60 Prescribed by: GILL SIMON on 08/11/14 0806 Last Action: HELD on 12/05/201357 by KALANI BROTHERS MD Patient Instructions Patient Instructions > 30min face to face tele sinus rhythm at DC Justicifation of Admission Dx: Justifications for Admission: Justification of Admission Dx: Yes (COVID, hypoxia) JAKE LUNDBERG MD Dec 09, 2020 11:00
[2020-12-09] MEDS: ENOXAPARIN 40 MG/0.4 ML SYRINGE. SQ SCH (12:04)
--- NOTE | 2020-12-09 14:36 | SNU/HH DC ---
DISCHARGE WITH HOME HEALTH DISCHARGE INFORMATION: Discharge Date: Dec 09, 2020 Final Diagnosis: COVID pneumonia hypoxia sepsis Problems Medical Problems: (1) CHF (congestive heart failure) Status: Acute (2) Pneumonia due to COVID-19 virus Status: Acute (3) Tachycardia Status: Acute Condition on Discharge: Stable CODE STATUS: Code Status: Full HOME HEALTH: Face to Face: I certify this patient is under my care and that I had a face to face encounter that meets the physician face to face encounter requirements with this patient on 12/09 Medical Complications: Pneumonia Care Home For: Assess & Educate Safety, Medication Management, Other: (hypoxia) RN For Eval/Treatment: Yes Physical Therapy For: Evalulation/Treatment Occupational Therapy For: Evaluation/Treatment Pt Meets Homebound Status: Limited distance walking, Other: (new hypoxia, COVID) POST DISCHARGE ORDERS: Activity Instructions for Disc: Activity as tolerated Weight Bearing Status after Di: No restrictions DIET AFTER DISCHARGE: Regular Wound/Incision Care: No wound care needed CHECKS AFTER DISCHARGE: Checks after discharge: Check blood press - daily, Check blood sugar, ac/hs, Check your Temp as needed FOLLOW-UP: Follow Up With: Primary care provider in 2 weeks TREATMENT/EQUIPMENT ORDERS: Adaptive Equipment Issued: None Discharge Respiratory Equipmen: Oxygen CERTIFICATION STATEMENT: Certification Statement: Certification Statement: Based on the above finding, I certify that this patient is confined to the home and needs intermittent correction care, physical therapy and/or speech therapy, or continues to need occupational therapy.~ This patient is under my care, and I have initiated the establishment of the plan of care.~ This patient will be followed by myself or a community physician who will periodically review the plan of care. Home Meds Active Scripts Prednisone (PREDNISONE ) 10 Mg Tablet, 10 MG PO UD for COVID, #30 TAB 0 Refills Take 5 tablets by mouth daily for 2 days, then take 4 tablets by mouth daily for 2 days, then take 3 tablets by mouth daily for 2 days, then take 2 tablets by mouth daily for 2 days, then take 1 tablets by mouth daily for 2 days, then stop. Prov:JAKE LUNDBERG MD 12/09/20 Doxycycline Hyclate (DOXYCYCLINE HYCLATE) 100 Mg Tablet, 100 MG PO BID for pneumonia, #10 TAB Prov:JAKE LUNDBERG MD 12/09/20 Tamsulosin Hcl (FLOMAX) 0.4 Mg Cap.er.24h, 0.4 MG PO QHS for urinary retention, #30 CAP.SR Prov:JAKE LUNDBERG MD 12/09/20 Carvedilol (CARVEDILOL ) 12.5 Mg Tablet, 12.5 MG PO BIDWMEALS for HTN for 90 Days, #180 TAB 4 Refills Prov:VENKAT GRIJALVA MD 03/05/18 Pantoprazole Sodium (PANTOPRAZOLE SODIUM ) 40 Mg Tablet., 40 MG PO DAILYAC for 30 Days, #30 TAB.SR Prov:ROHIT CLARKE MD 09/08/16 Spironolactone (ALDACTONE) 25 Mg Tablet, 25 MG PO DAILY, #90 TAB 4 Refills Prov:VENKAT GRIJALVA MD 02/29/16 Lisinopril (LISINOPRIL) 20 Mg Tablet, 20 MG PO DAILY, #90 TAB 6 Refills Prov:VENKAT GRIJALVA MD 02/29/16 Furosemide (FUROSEMIDE) 40 Mg Tablet, 40 MG PO DAILY, #90 TAB 4 Refills Prov:VENKAT GRIJALVA MD 02/29/16 Clopidogrel Bisulfate (CLOPIDOGREL) 75 Mg Tablet, 75 MG PO DAILYWBKFT, #30 TAB Prov:VENKAT GRIJALVA MD 02/29/16 Aspirin (ASPIRIN EC) 81 Mg Tablet., 81 MG PO DAILYWBKFT, #90 TAB.EC Prov:VENKAT GRIJALVA MD 02/29/16 Metformin Hcl (METFORMIN HCL) 500 Mg Tablet, 1 TAB PO BID, #60 TAB 3 Refills Prov:JENNIFER GARNER MD 04/01/14 Reported Medications Cholecalciferol (Vitamin D3) (VITAMIN D) 1,000 Unit Capsule, 5000 UNIT PO WEEKLY for supplement, CAP 03/05/18 Donepezil Hcl (ARICEPT) 10 Mg Tablet, 10 MG PO HS for memory, TAB 03/05/18 Atorvastatin Calcium (LIPITOR) 20 Mg Tablet, 20 MG PO HS for FOR CHOLESTEROL, #30 TAB 0 Refills 03/05/18 Ferrous Sulfate (FERROUS SULFATE) 325 Mg Tablet, 325 MG PO BID for supplement, TAB 03/05/18 Discontinued Scripts Carvedilol (COREG ) 6.25 Mg Tablet, 6.25 MG PO BIDWMEALS, #60 TAB Prov:GILL SIMON MD 08/11/14 JAKE LUNDBERG MD Dec 09, 2020 14:36
[2020-12-09 15:00] VITALS: BP 149/85
--- NOTE | 2020-12-09 15:15 | NUR ---
SS following up with discharge planning. SS reviewed pt chart and discussed with pt RN. Pt is currently requiring oxygen. Discharge orders received for home with home healthcare. Pt accepted on services with [facility], ; fax [phone]. Discharge orders sent to [facility]. Six minute walk completed and script received for oxygen. SS phoned and faxed script and clinical to [facility], ; fax [phone]. Oxygen tank provided to pt for home. Pt's RN notified.
[2020-12-09] MEDS: REMDESIVIR 100mg in NORMAL SALINE 250ML X 4 DAYS IV SCH (15:28)
--- NOTE | 2020-12-09 17:20 | NUR ---
Discharge Note: ANJU LOVELACE [facility] Discharge instructions and discharge home medications reviewed with Patient and a copy given. All questions have been answered and understanding verbalized. The following instructions and handouts were given: COVID DISCHARGE INSTRUCTIONS, DOXYCYCLINE, PREDNISONE, TAMSULOSIN. Patient discharged to home with home health via wheelchair. Sent with oxygen and instructions to use 6 L with activity and none at rest.
[2020-12-10] MEDS ORDERED: POTASSIUM CHLORIDE 20 MEQ TABLET.ER. PO SCH (08:00)
== END 2020-12-09 17:20 | disposition home health service (06) | DRG 871 ==
LOC: ER 11:03 → 6 SOUTH 12:40
PROVIDERS: ADMIT Student in an Organized Health Care Education/Training Program; ATTEND Student in an Organized Health Care Education/Training Program
PROC: XW033E5 Introduction of Remdesivir Anti-infective into Peripheral Vein, Percutaneous Approach, New Technology Group 5 (ICD-10-PCS; principal; 2020-12-05)
DX: A41.9 Sepsis, unspecified organism (principal); J12.82 Pneumonia due to coronavirus disease 2019; J96.01 Acute respiratory failure with hypoxia; U07.1 COVID-19; I21.A1 Myocardial infarction type 2; I50.31 Acute diastolic (congestive) heart failure; E11.9 Type 2 diabetes mellitus without complications; E66.9 Obesity, unspecified; E78.00 Pure hypercholesterolemia, unspecified; E78.5 Hyperlipidemia, unspecified; F03.90 Unspecified dementia, unspecified severity, without behavioral disturbance, psychotic disturbance, mood disturbance, and anxiety; I11.0 Hypertensive heart disease with heart failure; I25.10 Atherosclerotic heart disease of native coronary artery without angina pectoris; I25.5 Ischemic cardiomyopathy; I48.91 Unspecified atrial fibrillation; N40.0 Benign prostatic hyperplasia without lower urinary tract symptoms; Z86.73 Personal history of transient ischemic attack (TIA), and cerebral infarction without residual deficits; Z68.33 Body mass index [BMI] 33.0-33.9, adult; I25.2 Old myocardial infarction; Z87.891 Personal history of nicotine dependence; Z95.1 Presence of aortocoronary bypass graft
CPT/HCPCS: 36415; 71045; 80048; 80053; 81001; 82962; 83605; 83880; 84484; 85025; 87040; 87205; 87426; 87804; 93005; 94618; 96365; J1100; J1644; J1650; J1815; J2543; J3370; J3490; J7040; J7050; 97116-GP; 97535-GO; 99285-25; G0378; J7030

== ENCOUNTER 2021-07-09 01:27 | Emergency (ER) | payer MEDICARE, MEDICAID ==
[~2021-07-09] VITALS: Ht 160 cm; Wt 75.9 kg
[~2021-07-09 01:27] MED LIST changes: +DOXY100T PO; +PRED-220 PO; +TAMS0.4C97 PO
[2021-07-09] MEDS ORDERED: IV RINGERS,LACTATED 1000ML 1,000 ML IV SCH (02:00)
[2021-07-09 02:08] LABS: BASO # 0.1 x10^3/uL (0.0-0.2); BASO % 1 % (0-3); EOS # 0.2 x10^3/uL (0.0-0.7); EOS % 2 % (0-3); HEMATOCRIT 39.5 % (39.0-53.0); HEMOGLOBIN 13.3 g/dL (13.0-17.5); LYMPH # 1.9 x10^3/uL (1.0-4.8); LYMPH % 22 % (24-48); MEAN CORPUSCULAR HEMOGLOBIN 28 pg (25-35); MEAN CORPUSCULAR HGB CONC 34 g/dL (31-37); MEAN CORPUSCULAR VOLUME 84 fL (79-100); MONO # 0.6 x10^3/uL (0.0-1.1); MONO % 7 % (0-9); NEUT # 5.7 x10^3/uL (1.8-7.7); NEUT % 68 % (31-73); PLATELET COUNT 228 x10^3/uL (140-400); RED BLOOD COUNT 4.69 x10^6/uL (4.30-5.70); RED CELL DISTRIBUTION WIDTH 15.5 % (11.5-14.5); WHITE BLOOD COUNT 8.4 x10^3/uL (4.0-11.0)
[2021-07-09 02:26] LABS: CALCIUM 8.7 mg/dL (8.5-10.1); CREATININE 1.5 mg/dL (0.7-1.3); POTASSIUM 4.1 mmol/L (3.5-5.1)
[2021-07-09 02:28] LABS: BARBITURATES NEG (NEG); BENZODIAZEPINES NEG (NEG); CANNABINOIDS NEG (NEG); COCAINE NEG (NEG); METHADONE NEG (NEG); OPIATES NEG (NEG); PHENCYCLIDINE NEG (NEG)
[2021-07-09 02:31] LABS: AMPHETAMINE/METHAMPHETAMINE NEG (NEG)
--- NOTE | 2021-07-09 03:04 | RAD ---
CT Head W/O Contrast: History: Reason: headache / Spl. Instructions: / History: Comparison: May 15, 2018 Axial images were obtained without contrast. 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 There is encephalomalacia in the right frontotemporal lobes. There is mild diffuse atrophy. There is no mass effect, extraaxial fluid collections or hydrocephalu s. There is no focal loss of kovacs-white matter distinction to suggest acute ischemia, i.e. stroke. Impression: Prior right fronto temporal craniotomy and significant encephalomalacia in the right frontal and temp oral lobes. No acute findings. PQRS Compliance Statement: One or more of the following individualized dose reduction techniques were utilized for this examinat ion: 1. Automated exposure control 2. Adjustment of the mA and/or kV according to patient size 3. Use of iterative reconstruction technique Electronically signed by: Scott Soares III, MD (07/09/2021 3:01 AM) [facility]
--- NOTE | 2021-07-09 03:13 | PHYS DOC ---
Past Medical History Past Medical History: CAD, CHF, CVA, Diabetes-Type II, High Cholesterol, Hypertension, [place], Seizure Additional Past Medical Histor: HEART DISEASE Past Surgical History: Coronary Bypass Surgery Smoking Status: Never Smoker Alcohol Use: None Drug Use: None General Adult EDM: Chief Complaint: HEADACHE HPI: HPI: Patient is a 65 year old male who presents to the emergency department today after suffering a headache at home. He states he was at home when he had a headache. He states the headache was frontal. There were no provocative factors for the headache. He describes pain as sharp. He states the headache is about a 7 out of 10. Headache resolved approximate 30 minutes after taking ibuprofen. EMS had already been called so he decided to present here to the emergency department for evaluation. He denies any focal weakness or sensory changes. He denies any visual changes. He denies any history of cancer. He denies any recent trauma to his head. He denies any fevers or chills. Review of Systems: Review of Systems: Constitutional: Denies fever or chills. [] Eyes: Denies change in visual acuity. [] HENT: Denies nasal congestion or sore throat. [] Respiratory: Denies cough or shortness of breath. [] Cardiovascular: Denies chest pain or edema. [] GI: Denies abdominal pain, nausea, vomiting, bloody stools or diarrhea. [] : Denies dysuria. [] Musculoskeletal: Denies back pain or joint pain. [] Integument: Denies rash. [] Neurologic: Denies headache, focal weakness or sensory changes. [] Endocrine: Denies polyuria or polydipsia. [] Lymphatic: Denies swollen glands. [] Psychiatric: Denies depression or anxiety. [] Heart Score: C/O Chest Pain: No Family History: Family History: Noncontributory Current Medications: Current Medications Medications (Trade) Dose Ordered Sig/Grace Start Time Stop Time Status Last Admin Dose Admin Ringer's Solution 1,000 ml @ 1,000 mls/hr Q1H 07/09/21 02:00 07/09/21 02:59 DC 07/09/21 02:09 1,000 MLS/HR Allergies: Allergies: Allergies Coded Allergies Type Severity Reaction Last Updated Verified No Known Drug Allergies 09/07/16 No Physical Exam: PE: Constitutional: Well developed, well nourished, no acute distress, non-toxic appearance. [] HENT: Normocephalic, atraumatic, bilateral external ears normal, oropharynx moist, no oral exudates, nose normal. [] Eyes: PERRLA, EOMI, conjunctiva normal, no discharge. [] Neck: Normal range of motion, no tenderness, supple, no stridor. [] Cardiovascular:Heart rate regular rhythm, no murmur [] Lungs & Thorax: Bilateral breath sounds clear to auscultation [] Abdomen: Bowel sounds normal, soft, no tenderness, no masses, no pulsatile masses. [] Skin: Warm, dry, no erythema, no rash. [] Back: No tenderness, no CVA tenderness. [] Extremities: No tenderness, no cyanosis, no clubbing, ROM intact, no edema. [] Neurologic: Alert and oriented X 3, normal motor function, normal sensory function, no focal deficits noted. [] Psychologic: Affect normal, judgement normal, mood normal. [] Current Patient Data: Labs: Laboratory Tests Test 07/09/21 01:33 07/09/21 01:52 07/09/21 02:00 Urine Opiates Screen Neg (NEG) Urine Methadone Screen Neg (NEG) Urine Barbiturates Neg (NEG) Urine Phencyclidine Screen Neg (NEG) Urine Amphetamine/Methamphetamine Neg (NEG) Urine Benzodiazepines Screen Neg (NEG) Urine Cocaine Screen Neg (NEG) Urine Cannabinoids Screen Neg (NEG) Urine Ethyl Alcohol Neg (NEG) Glucose (Fingerstick) 391 mg/dL (70-99) H White Blood Count 8.4 x10^3/uL (4.0-11.0) Red Blood Count 4.69 x10^6/uL (4.30-5.70) Hemoglobin 13.3 g/dL (13.0-17.5) Hematocrit 39.5 % (39.0-53.0) Mean Corpuscular Volume 84 fL (79-100) Mean Corpuscular Hemoglobin 28 pg (25-35) Mean Corpuscular Hemoglobin Concent 34 g/dL (31-37) Red Cell Distribution Width 15.5 % (11.5-14.5) H Platelet Count 228 x10^3/uL (140-400) Neutrophils (%) (Auto) 68 % (31-73) Lymphocytes (%) (Auto) 22 % (24-48) L Monocytes (%) (Auto) 7 % (0-9) Eosinophils (%) (Auto) 2 % (0-3) Basophils (%) (Auto) 1 % (0-3) Neutrophils # (Auto) 5.7 x10^3/uL (1.8-7.7) Lymphocytes # (Auto) 1.9 x10^3/uL (1.0-4.8) Monocytes # (Auto) 0.6 x10^3/uL (0.0-1.1) Eosinophils # (Auto) 0.2 x10^3/uL (0.0-0.7) Basophils # (Auto) 0.1 x10^3/uL (0.0-0.2) Sodium Level 136 mmol/L (136-145) Potassium Level 4.1 mmol/L (3.5-5.1) Chloride Level 101 mmol/L (98-107) Carbon Dioxide Level 28 mmol/L (21-32) Anion Gap 7 (6-14) Blood Urea Nitrogen 23 mg/dL (8-26) Creatinine 1.5 mg/dL (0.7-1.3) H Estimated GFR (Cockcroft-Gault) 47.0 Glucose Level 439 mg/dL (70-99) H Calcium Level 8.7 mg/dL (8.5-10.1) Ethyl Alcohol Level < 10 mg/dL (0-10) Laboratory Tests 07/09/21 02:00 Laboratory Tests 07/09/21 02:00 EKG: EKG: [] Radiology/Procedures: Radiology/Procedures: [] Impression: Headache Course & Med Decision Making: Course & Med Decision Making Patient remained hemodynamically stable in emergency department. He was evaluated at the bedside physical exam. Headache has resolved. Basic labs obtained and unremarkable. On reassessment patient continues to be pain-free. We will discharge him home have him follow-up with his PCP. Anuon Disclaimer: Dragsade Disclaimer: This electronic medical record was generated, in whole or in part, using a voice recognition dictation system. Departure Departure Impression: Primary Impression: Headache Disposition: HOME / SELF CARE / HOMELESS Condition: IMPROVED Referrals: VENKAT GRIJALVA MD (PCP) Patient Instructions: General Headache Without Cause YOSI MILLS MD July 09, 2021 03:13
[2021-07-09 03:45] VITALS: BP 168/92
--- NOTE | 2021-07-12 08:31 | EKG ---
[facility] [address] [place] [address] Test Date: 2021-07-09 Test Time: 01:44:50 Pat Name: FUNMILAYO LOVELACE Department: Room: Gender: M Supervisor Type Bar And Segment: [id number] : 1955 Requested By: YOSI MILLS Order Number: [id number] Reading MD: Robles Joshi MD Measurements Intervals [place] Rate: 116 P: -122 MT: 152 QRS: -80 QRSD: 162 T: 91 QT: 354 QTc: 499 Interpretive Statements SUSPECT SUPRAVENTRICULAR TACHYCARDIA WITH ABBERANCY CANNOT RULE OUT VT Electronically Signed On 07-12-2021 11:10:24 CDT by Robles Joshi MD
== END 2021-07-09 03:58 | disposition home or self-care (01) ==
LOC: ER 01:27
DX: R51.9 Headache, unspecified (principal); E11.9 Type 2 diabetes mellitus without complications; E78.00 Pure hypercholesterolemia, unspecified; I11.0 Hypertensive heart disease with heart failure; I50.9 Heart failure, unspecified; I25.10 Atherosclerotic heart disease of native coronary artery without angina pectoris; Z86.73 Personal history of transient ischemic attack (TIA), and cerebral infarction without residual deficits; I25.2 Old myocardial infarction; Z95.1 Presence of aortocoronary bypass graft
CPT/HCPCS: 36415; 70450; 80048; 80307; 82962; 85025; 93005; 96360; 99284; G0480; J7120